=== PATIENT | male | born 1950 | race Caucasian/White ===

== ENCOUNTER → 2018-02-28 | Outpatient (CLI) | payer OTHER ==
[~2018-02-28] MED LIST: AMOX500T PO; AMOX875T PO; ASPI81TA28 PO; CEFT1INJ26 IV; INSDGIPEN SC; METFTAB PO
[2018-02-28 17:21] LABS: HEMATOCRIT 34.7 % (42-52); HEMOGLOBIN 11.1 g/dL (14.0-18.0); MEAN CELL VOLUME 84.6 fL (80-100); MEAN CORPUSCULAR HEMOGLOBIN 27.1 pg (25-34); MEAN PLATELET VOLUME 9.4 fL (7.4-10.4); PLATELET COUNT 195 K/uL (130-400); RED CELL DISTRIBUTION WIDTH CV 14.6 % (11.5-14.5); RED CELL DISTRIBUTION WIDTH SD 45.2 fL (36.4-46.3); WHITE BLOOD COUNT 6.81 K/uL (4.8-10.8)
[2018-02-28 17:34] LABS: ALBUMIN 2.6 gm/dl (3.4-5.0); ALKALINE PHOSPHATASE 75 U/L (45-117); ALT/SGPT 15 U/L (12-78); AST/SGOT 13 U/L (15-37); BLOOD UREA NITROGEN 16 mg/dl (7-18); CALCIUM 8.2 mg/dl (8.5-10.1); CARBON DIOXIDE 29 mmol/L (21-32); CREATININE 0.95 mg/dl (0.60-1.40); GLUCOSE 241 mg/dl (70-99); POTASSIUM 3.9 mmol/L (3.5-5.1); SODIUM 139 mmol/L (136-145); TOTAL PROTEIN 7.7 gm/dl (6.4-8.2)
--- NOTE | 2018-04-13 08:12 | CODING QUERY NO DIAGNOSIS ---
Valid Physician Order Needed A valid physician order must be submitted in order to properly bill for the service(s) provided, including date of service(s), valid diagnosis, and physician signature. If these tests are done on a recurring basis the original physican order must be submitted in order to code and bill for the service(s) provided. Please fax us the original, signed physician order so that we may expedite billing to [phone] DOS 02/28/18 * CMP * CREATINE PHOSPHOKINASE * CBC W/O DIFF * ERYTHROCYTE SEDIMENTATION RATE Thank you Fidelina [facility] Information Management
== END | disposition home or self-care (01) ==
LOC: C.LABSPEC 11:40
PROVIDERS: ATTEND Internal Medicine Infectious Disease
DX: R78.81 Bacteremia (principal); Z45.2 Encounter for adjustment and management of vascular access device

== ENCOUNTER → 2018-03-10 | Outpatient (CLI) | payer OTHER ==
[2018-03-10 15:03] LABS: HEMATOCRIT 37.3 % (42-52); HEMOGLOBIN 12.2 g/dL (14.0-18.0); MEAN CELL VOLUME 82.9 fL (80-100); MEAN CORPUSCULAR HEMOGLOBIN 27.1 pg (25-34); MEAN CORPUSCULAR HGB CONC 32.7 g/dl (32-36); PLATELET COUNT 213 K/uL (130-400); RED CELL DISTRIBUTION WIDTH CV 14.5 % (11.5-14.5); RED CELL DISTRIBUTION WIDTH SD 44.3 fL (36.4-46.3); WHITE BLOOD COUNT 5.78 K/uL (4.8-10.8)
[2018-03-10 15:11] LABS: ALBUMIN 2.9 gm/dl (3.4-5.0); ALKALINE PHOSPHATASE 66 U/L (45-117); ALT/SGPT 15 U/L (12-78); AST/SGOT 12 U/L (15-37); BLOOD UREA NITROGEN 22 mg/dl (7-18); CALCIUM 8.4 mg/dl (8.5-10.1); CARBON DIOXIDE 29 mmol/L (21-32); CREATININE 1.04 mg/dl (0.60-1.40); GLUCOSE 187 mg/dl (70-99); SODIUM 140 mmol/L (136-145); TOTAL PROTEIN 7.8 gm/dl (6.4-8.2)
== END | disposition home or self-care (01) ==
LOC: C.LABSPEC 11:36
PROVIDERS: ATTEND Internal Medicine Infectious Disease
DX: R78.81 Bacteremia (principal)

== ENCOUNTER 2019-03-11 16:25 | Inpatient (IN) ==
[2019-03-11] MEDS ORDERED: VANCOMYCIN CONSULT ACTIVE PRN ×2 (17:03→21:10)
[2019-03-11] MEDS ORDERED: VANCOMYCIN HCL 1,500 MG in SODIUM CHLORIDE 0.9% 500 ML IV ONE (17:03)
[2019-03-11] MEDS ORDERED: cefTRIAXone SODIUM 1,000 MG/50 ML BAG IV STA (17:03)
--- NOTE | 2019-03-11 17:21 | XRay Report ---
XR foot RT min 3V routine CLINICAL HISTORY: possible infection, great toe infection. Pain. COMPARISON: None. DISCUSSION: Destructive changes involving the tuft of the distal phalanx of the great toe. Moderate l ocalized soft tissue edematous change. This appearance is consistent with that of osteomyelitis. Mild degenerative change of all remaining components of the foot. Dorsal soft tissue edematous change . Alignment is anatomic. IMPRESSION: 1. Destructive changes involving the tuft of the distal phalanx of the great toe. 2. This appearance is consistent with that of osteomyelitis. The above report was generated using voice recognition software. It may contain grammatical, syntax or spelling errors. Electronically signed by: Mychal Wallace M.D. 03/11/2019 5:19 PM
[2019-03-11 17:54] LABS: Basophils # (auto) 0.03 K/uL (0-0.2); Basophils % (auto) 0.5 %; Eosinophils # (auto) 0.26 K/uL (0-0.5); Hemoglobin 11.2 g/dL (14.0-18.0); Immature Granulocytes # (auto) 0.01 K/uL (0.00-0.02); Immature Granulocytes % (auto) 0.2 %; Lymphocytes # (auto) 1.37 K/uL (1.2-3.4); Lymphocytes % (auto) 21.1 %; Mean Corpuscular Hgb Conc 33.9 g/dL (32-36); Mean Corpuscular Volume 86.6 fL (80-100); Mean Platelet Volume 8.8 fL (7.4-10.4); Monocytes # (auto) 0.77 K/uL (0.11-0.59); Monocytes % (auto) 11.9 %; Neutrophils # (auto) 4.05 K/uL (1.4-6.5); Neutrophils % (auto) 62.3 %; Platelet Count 301 K/uL (130-400); RDW Coefficient of Variation 12.6 % (11.5-14.5); RDW Standard Deviation 40.3 fL (36.4-46.3); Red Blood Count 3.81 M/uL (4.7-6.1); White Blood Count 6.49 K/uL (4.8-10.8)
[2019-03-11 18:03] LABS: Partial Thromboplastin Ratio 0.9; Partial Thromboplastin Time 25.2 Seconds (21.0-31.0); Prothrombin Time 10.2 Seconds (9.0-12.0)
[2019-03-11 18:04] LABS: BUN Creatinine Ratio 11.3 (10-20); C Reactive Protein 5.78 mg/dl (0-0.29); Calcium 8.9 mg/dl (8.5-10.1); Creatinine Clr Calc Pharmacy 55.4 ml/min; Est GFR (African American) 71.4; Est GFR (Non-African American) 61.6; Potassium 4.5 mmol/L (3.5-5.1)
[2019-03-11 18:07] LABS: Albumin Globulin Ratio 0.6 (0.9-2); Bilirubin,Total 0.3 mg/dl (0.2-1)
--- NOTE | 2019-03-11 18:40 | Ultrasound Report ---
RIGHT LOWER EXTREMITY VENOUS DOPPLER HISTORY: Right leg swelling COMPARISON STUDY: None. FINDINGS: Near occlusive thrombus seen within the right popliteal vein. The remaining deep venous str uctures are patent. IMPRESSION: Near occlusive DVT within the right popliteal vein. Electronically signed by: Yared Estrada M.D. 03/11/2019 6:39 PM
[2019-03-11] MEDS ORDERED: ENOXAPARIN 80 MG/0.8 ML SYR SQ ONE (18:50)
--- NOTE | 2019-03-11 19:55 | History & Physical Report ---
Date of Service March 11, 2019 Assessment & Plan (1) Deep vein thrombosis (DVT) of popliteal vein of right lower extremity: Patient was started on therapeutic Lovenox in the ED. We will change to heparin IV in the a.m. if a bone biopsy or other procedure is planned. Order hypercoagulable panel. He denies any symptoms of chest pain or shortness of breath. Present on Admission?: Yes (2) Osteomyelitis of great toe of right foot: Diabetic foot ulcer right great toe/osteomyelitis- When this happened his left foot previously, he had group C beta strep as the organism. Vancomycin IV and Zosyn IV empirically. Consult infectious disease. Will need PICC line placement. Will need lower extremity arterial Dopplers. Present on Admission?: Yes (3) Diabetic ulcer of right great toe: As above Present on Admission?: Yes (4) Type 2 diabetes mellitus: Hold metformin. Placed on Accu-Cheks with NovoLog coverage. Check a hemoglobin A1c Present on Admission?: Yes (5) Anemia: Chronically anemic, with range 9.9-13.0. 11.2 today. We will need to review her chart to see if he is up-to-date on colonoscopies etc. Present on Admission?: Yes (6) CAD (coronary artery disease): Aspirin 81 mg p.o. daily. Present on Admission?: Yes (7) Myocardial infarction: No acute issues at this time. Present on Admission?: Yes (8) Status post amputation of toe: Previous involvement of osteomyelitis and left foot required partial amputation, and then developed secondary infection. Patient reports no further issues since this had occurred in January 2018. Present on Admission?: Yes History of Present Illness Chief Complaint: The patient was referred by his PCP to the ED today after being seen in the office and noted to have a foul-smelling right great toe lesion. The patient himself is unsure of the time origin, but thinks that it has been at least 3 weeks that is been present. Primary Care Provider: Javier Houston MD The patient is a 69-year-old male with a past medical history including diabetes mellitus, and previous cellulitis/osteomyelitis of his left great toe requiring a PICC line and several weeks of IV antibiotics. He presented to his PCPs office today, was noted to have a significant right great toe infection, and was referred to the ED for further assessment. He reportedly had been started on Keflex by his glove examiner 3 days previously. X-ray in the emergency department showed destructive changes involving the tuft of the distal phalanx of the right great toe, that was consistent with osteomyelitis. He also underwent a lower extremity venous Doppler which showed near complete DVT within the right popliteal vein. He was then referred for evaluation for admission. Allergies Allergy/AdvReac Type Severity Reaction Status Date / Time ranitidine Allergy Unknown Verified 03/11/19 18:45 Home Medications Home Medications Medication Instructions Recorded Confirmed Type aspirin 81 mg tablet,delayed 81 mg PO DAILY 04/17/18 03/11/19 History release cephalexin 250 mg PO QID 03/11/19 03/11/19 History metformin ER 500 mg 1,000 mg PO AMPM #120 tab 03/11/19 03/11/19 History tablet,extended release 24 hr Past Med/Surg History Medical History Acquired claw toe of left foot (Acute) Acquired claw toe of right foot (Acute) Callus (Acute) Diabetic peripheral neuropathy (Acute) 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 (Acute) Coronary artery disease (Chronic) Diabetes mellitus type II, uncontrolled (Chronic) GERD (gastroesophageal reflux disease) (Chronic) Myocardial infarction (Chronic) Surgical History H/O angioplasty (Chronic) Social History Preferred Language: Vietnamese Communication Ability: Effective Visual Impairment: No Limitations Hearing Ability: Normal Geospatial Engineer Required: No Beliefs That Will Affect Care: None marital status: Current Living Situation: Family Current Living Situation Comment: 2 story home; railings present current occupational status: employed 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; 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 Other Information That Helps Us Care for You: No Feels Safe at Home: Yes Safety Concerns: Feels Safe At This Time Smoking Status: Former smoker Do You Dip or Chew Tobacco: No Smoking End Date: 20 years ago Second Hand Exposure: Yes Tobacco Cessation Education Requested by Patient: No Hx Alcohol Use: No Hx Substance Use: No Review of Systems Review of Systems: The patient denies chest pain, palpitations, shortness of breath, dyspnea on exertion, cough, sore throat, fevers, chills, sweats, weight change, fatigue, nausea, vomiting, diarrhea , constipation, abdominal pain, pelvic pain, blood in urine or stool, dysuria, urinary frequency or urgency, lightheadedness, dizziness, headache, memory loss, loss of consciousness, abnormal bruising or bleeding, imbalance, focal or generalized weakness, numbness or tingling in arms or left leg, generalized arthralgias or myalgias, back or neck pain, or night sweats. The review of systems is otherwise negative other than for that already noted above, and at least 10 systems have been reviewed. Physical Exam Physical Exam: The patient is awake, alert and oriented 3, well developed and well nourished, normocephalic and atraumatic, lying in bed and in no acute distress. HEENT--PERRL, EOMI, mucous membranes and oropharynx normal. Neck--supple. No JVD. No bruits. Thyroid normal, trachea midline, no adenopathy. Heart--normal S1 and S2. No murmurs, rubs or gallops. Lungs--clear bilaterally, no respiratory distress, no accessory muscle use. Abdomen--normal bowel sounds and soft. Nontender. Nondistended, no hernias or masses, no organomegaly. Extremities--no cyanosis or clubbing. Right lower extremity with pretibial and pedal 1+ pitting edema. Left lower extremity normal. Dermatologic--right great toe with erythema distally to the first metatarsal, and ulceration. Neurologic--cranial nerves II through XII grossly intact. Rheumatologic--normal range of motion. Psychiatric--normal affect. Results & Data Vital Signs (Past 12 Hours) Vital Signs Temp Pulse Pulse Resp BP BP Pulse Ox 03/11/19 19:30 81 16 142/80 H 97 03/11/19 17:30 90 20 136/69 97 03/11/19 16:44 98.1 F 97 H 20 134/76 96 Laboratory Results Laboratory Results WBC 6.49 K/uL (4.8-10.8) 03/11/19 17:25 RBC 3.81 M/uL (4.7-6.1) L 03/11/19 17:25 Hgb 11.2 g/dL (14.0-18.0) L 03/11/19 17:25 Hct 33.0 % (42-52) L 03/11/19 17:25 MCV 86.6 fL (80-100) 03/11/19 17:25 MCH 29.4 pg (25-34) 03/11/19 17: MCHC 33.9 g/dL (32-36) 03/11/19 17:25 RDW Std Deviation 40.3 fL (36.4-46.3) 03/11/19: RDW Coeff of Bri 12.6 % (11.5-14.5) 03/11/19: Plt Count 301 K/uL (130-400) 03/11/19: MPV 8.8 fL (7.4-10.4) 03/11/19: Immature Gran % (Auto) 0.2 % 03/11/19 17: Neut % (Auto) 62.3 % 03/11/19: Lymph % (Auto) 21.1 % 03/11/19 17:25 Wirt % (Auto) 11.9 % 03/11/19 17:25 Eos % (Auto) 4.0 % 03/11/19 17:25 Baso % (Auto) 0.5 % 03/11/19: Immature Gran # (Auto) 0.01 K/uL (0.00-0.02) 03/11/19: Neut # (Auto) 4.05 K/uL (1.4-6.5) 03/11/19:25 Lymph # (Auto) 1.37 K/uL (1.2-3.4) 03/11/19:25 Wirt # (Auto) 0.77 K/uL (0.11-0.59) H 03/11/19 17:25 Eos # (Auto) 0.26 K/uL (0-0.5) 03/11/19:25 Baso # (Auto) 0.03 K/uL (0-0.2) 03/11/19:25 ESR > 140 mm/hr (0-14) H 03/11/19 17:25 PT 10.2 Seconds (9.0-12.0) 03/11/19:25 INR 1.0 (0.9-1.1) 03/11/19 17:25 APTT 25.2 Seconds (21.0-31.0) 03/11/19 17:25 PTT Ratio 0.9 03/11/19 17:25 Sodium 141 mmol/L (136-145) 03/11/19 17:25 Potassium 4.5 mmol/L (3.5-5.1) 03/11/19 17:25 Chloride 106 mmol/L (98-107) 03/11/19 17:25 Carbon Dioxide 30 mmol/L (21-32) 03/11/19 17:25 Anion Gap 5.0 (3-11) 03/11/19 17:25 BUN 14 mg/dl (7-18) 03/11/19 17:25 Creatinine 1.21 mg/dl (0.6-1.4) 03/11/19 17:25 Est Cr Clr Drug Dosing 55.4 ml/min 03/11/19 17:25 Est GFR ( Amer) 71.4 03/11/19 17:25 Est GFR (Non-Af Amer) 61.6 03/11/19 17:25 BUN/Creatinine Ratio 11.3 (10-20) 03/11/19 17:25 Glucose 135 mg/dl (70-99) H 03/11/19 17:25 POC Glucose 96 (70-99) 03/11/19 21:22 Calcium 8.9 mg/dl (8.5-10.1) 03/11/19 17:25 Total Bilirubin 0.3 mg/dl (0.2-1) 03/11/19 17:25 AST 10 U/L (15-37) L 03/11/19 17:25 ALT 14 U/L (12-78) 03/11/19 17:25 Alkaline Phosphatase 62 U/L (45-117) 03/11/19 17:25 C-Reactive Protein 5.78 mg/dl (0-0.29) H 03/11/19 17:25 Total Protein 8.0 gm/dl (6.4-8.2) 03/11/19 17:25 Albumin 3.0 gm/dl (3.4-5.0) L 03/11/19 17:25 Globulin 5.0 gm/dl (2.5-4.0) H 03/11/19 17:25 Albumin/Globulin Ratio 0.6 (0.9-2) L 03/11/19 17:25 Procalcitonin 0.05 ng/ml (0-0.5) 03/11/19 17:25 Diagnostic Findings [place], [place] [phone] XRay Report Patient: FARHAN HINOJOSA Date: 03/11/19 MR#: [id number]: [address] Acct ID:[id number]: Date: [address] [place] [address] Zip: [place] [address] Age: 69Location: ED Sex: M Room/Bed: Att Phy: Diagnosis: DIABETIC ULCER ON BIG TOE, RT FOOT Lakeisha Phy: Javier Houston MDService Date: 03/11/19 Fam Phy: Interpreting Phy: Mychal Wallace MD Admit Phy: Ordering Phy: Johnny Diamond DO cc: ~ XR foot RT min 3V routine CLINICAL HISTORY: possible infection, great toe infection. Pain. COMPARISON: None. DISCUSSION: Destructive changes involving the tuft of the distal phalanx of the great toe. Moderate localized soft tissue edematous change. This appearance is consistent with that of osteomyelitis. Mild degenerative change of all remaining components of the foot. Dorsal soft tissue edematous change. Alignment is anatomic. IMPRESSION: 1. Destructive changes involving the tuft of the distal phalanx of the great toe. 2. This appearance is consistent with that of osteomyelitis. The above report was generated using voice recognition software. It may contain grammatical, syntax or spelling errors. Electronically signed by: yMchal Wallace M.D. 03/11/2019 5:19 PM Dictated: 03/11/191717 Transcribed: 03/11/19 1718 [place], [place] [phone] Ultrasound Report Patient: FARHAN HINOJOSA Date: 03/11/19 MR#: [id number]: [address] Acct ID:[id number]: Date: [address] [place] [address] Zip: [place] [address] Age: 69Location: ED Sex: M Room/Bed: Att Phy: Diagnosis: DIABETIC ULCER ON BIG TOE, RT FOOT Lakeisha Phy: Javier Houston, MDService Date: 03/11/19 Fam Phy: Interpreting Phy: Yared Estrada MD Admit Phy: Ordering Phy: Johnny Diamond DO cc: ~ RIGHT LOWER EXTREMITY VENOUS DOPPLER HISTORY: Right leg swelling COMPARISON STUDY: None. FINDINGS: Near occlusive thrombus seen within the right popliteal vein. The remaining deep venous structures are patent. IMPRESSION: Near occlusive DVT within the right popliteal vein. Electronically signed by: Yared Estrada M.D. 03/11/2019 6:39 PM Dictated: 03/11/191837 Transcribed: 03/11/191837 Code Status & VTE Plan Code Status Full code VTE Prophylaxis Plan VTE Prophylaxis will be ordered: Yes PG Care Time/CCT Total # of Minutes Spent Total Time Spent with Patient: Total time spent is greater than 50% in coordination of care (as documented) at patient's floor/unit and/or counseling patient:
[2019-03-11] MEDS ORDERED: GLUCOSE 40% GEL 15 GM TUBE PO PRN (21:10)
[2019-03-11] MEDS ORDERED: MAGNESIUM HYDROXIDE SUSP 30 ML UDC PO PRN (21:10)
[2019-03-11] MEDS ORDERED: ONDANSETRON INJ 2 MG/ML 2 ML VIAL IV PRN (21:10)
[2019-03-11] MEDS ORDERED: POLYETHYLENE (MIRALAX) 17 GM PACK PO PRN (21:10)
[2019-03-11] MEDS ORDERED: ACETAMINOPHEN 1000 MG/100 ML IV IV PRN (21:10)
[2019-03-11] MEDS ORDERED: ALUMINUM/MAGNESIUM SUSP 30 ML UDC PO PRN (21:10)
[2019-03-11] MEDS ORDERED: PIPERACILL/TAZOBAC CONSULT ACTIVE PRN (21:10)
[2019-03-11] MEDS ORDERED: GLUCOSE 10 TABS/TUBE PO PRN (21:10)
[2019-03-11] MEDS ORDERED: DEXTROSE 50% 50 ML SYRINGE IV PRN (21:10)
[2019-03-11] MEDS ORDERED: ACETAMINOPHEN 325 MG TAB PO PRN (21:10)
[2019-03-11] MEDS ORDERED: CARBOHYDRATES FOR HYPOGLYCEMIA PO PRN (21:10)
[2019-03-11] MEDS ORDERED: GLUCAGON FOR INJ 1 MG VIAL SQ PRN (21:10)
[2019-03-11] MEDS ORDERED: PIPERACILLIN/TAZOBACTAM 3.375 GM in DEXTROSE 5% 100 ML IV STA (21:34)
[2019-03-11] MEDS ORDERED: DIPHTHERIA/TETANUS/ACELLULAR PERTUSSIS PEDIATRIC 0.5 ML VIAL IM ONE (22:00)
[2019-03-11] MEDS: INSULIN ASPART 100 UNITS/ML 3 ML PEN SC SCH (22:12)
--- NOTE | 2019-03-11 23:29 | Emergency Department Note ---
Entered by Chaparrita Rivera acting as a scribe for History of Present Illness General Chief complaint: Infection, Wound Stated complaint: DIABETIC ULCER ON BIG TOE, RT FOOT Time Seen by Provider: 03/11/19 16:48 Source: patient Mode of arrival: ambulatory Limitations: no limitations History of Present Illness Onset (ago): day(s) 3 Location: right (right foot, big toe) Pain Consistency: + other (worsening ) Quality: + other (pressure ) Relieved By: + medication (Cephalexin) Exacerbated By: + other (Bactroban) Associated symptoms: no fever/chills and no nausea/vomiting The patient is a 69 year old male who presents to the ED with complaints of a worsening ulcer on the big toe of his right foot for 3 days now. He reports that the swelling has gone down but there is "quite a bit of drainage coming from the toe." He states that he only feels "pressure" in his toe. The patient denies normal swelling in his right ankle that he presents with in the ED today. He claims that it started as a blister and progressed into an ulcer. The patients reports that the patient puts Bactroban on his toe ulcer. The patient states that he is currently on Cephalexin for his ulcer prescribed by Dr. Carmen, Podiatry. The patient states that he lost a toe on his left foot a year ago from an ulcer caused by his diabetes. The patient claims that he had a stent placed in 2006. The patient denies, fever, chills, nausea, and vomiting. The patient denies any history of blood clots. Home Medications Home Medications Medication Instructions Recorded Confirmed Type aspirin 81 mg tablet,delayed 81 mg PO DAILY 04/17/18 03/11/19 History release cephalexin 250 mg PO QID 03/11/19 03/11/19 History metformin ER 500 mg 1,000 mg PO AMPM #120 tab 03/11/19 03/11/19 History tablet,extended release 24 hr Allergies Allergy/AdvReac Type Severity Reaction Status Date / Time ranitidine Allergy Unknown Verified 03/11/19 18:45 Past Med/Surg History Medical History Acquired claw toe of left foot (Acute) Acquired claw toe of right foot (Acute) Callus (Acute) Diabetic peripheral neuropathy (Acute) 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 (Acute) Coronary artery disease (Chronic) Diabetes mellitus type II, uncontrolled (Chronic) GERD (gastroesophageal reflux disease) (Chronic) Myocardial infarction (Chronic) Surgical History H/O angioplasty (Chronic) Social History Preferred Language: Hungarian Communication Ability: Effective Visual Impairment: No Limitations Hearing Ability: Normal 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 Beliefs That Will Affect Care: None marital status: Current Living Situation: Family Current Living Situation Comment: 2 story home; railings present current occupational status: employed 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 and A total of 10 systems reviewed and were otherwise negative Physical Exam Vital Signs Vital Signs - 24 hr 03/11/19 16:44 03/11/19 17:30 03/11/19 19:30 Temperature 36.7 C Temperature Source Oral Sepsis Recent Fever Within 48 Hours No Sepsis New/Unexplained Change in Mental Status No Sepsis Action Taken by Nursing No Action Required Pulse Rate 97 H Pulse Rate [Apical] 90 81 Pulse Rhythm Regular Pulse Rhythm [Apical] Regular Pulse Strength Normal Pulse Strength [Apical] Normal Respiratory Rate 20 20 16 Respiratory Effort / Characteristics Non-Labored Spontaneous Non-Labored Respiratory Depth Normal Normal Respiratory Pattern Regular Regular Blood Pressure 134/76 Blood Pressure [Right Arm] 136/69 142/80 H Blood Pressure Mean 95 Blood Pressure Mean [Right Arm] 91 100 Blood Pressure Position Sitting Blood Pressure Position [Right Arm] Lying Pulse Oximetry 96 97 97 Oxygen Delivery Method Room Air Room Air Room Air GENERAL: Patient is awake, alert, and in no acute distress.Patient is resting comfortably and showing no signs of anxiety EYES: The conjunctivae are clear. The pupils are round and reactive. EARS, NOSE, MOUTH AND THROAT: The nose is without any evidence of any deformity. Mucous membranes are moist.Tongue is midline NECK: The neck is nontender and supple. RESPIRATORY: Normal respiratory effort is noted. There is no evidence of wheezing rhonchi or rales to auscultation. CARDIOVASCULAR: Regular rate and rhythm noted. There no murmurs rubs or gallops normal S1 normal S2 GASTROINTESTINAL: The abdomen is soft. Bowel sounds are present in all quadrants. Abdomen is nontender. MUSCULOSKELETAL/EXTREMITIES: There is no evidence of gross deformity. Full range of motion is noted in the hips and shoulders. SKIN: Pedal edema bilaterally, with the right bigger than the left. No di scoloration in right lower extremity. Significant ulceration at the plantar surface of the right great toe. Deep ulceration that is approx. 3 cm in diameter. Significant erythema and swelling noted around the right great toe. NEUROLOGIC: Patient is awake alert and oriented x3. [Strength is symmetric. Patellar reflexes are 2+ bilaterally.] Course 1702: Past medical records reviewed. The patient was evaluated in room C3. A complete history and physical exam was performed. 1840: I reevaluated the patient at this time and he is resting comfortably. I discussed the patients case with Fatuma Theodore. He suggested the patient begin Lovenox. He agreed to evaluate the patient in the morning for further management. Consultations Consultation #1: I reevaluated the patient at this time and he is resting comfortably. I discussed the patients case with Fatuma Theodore. He suggested the patient begin Lovenox. He agreed to evaluate the patient in the morning for further management. Time: 18:40 Administered Medications Aspirin (Ecotrin Ectab) 81 mg PO DAILY [facility] Stop: 04/11/19 08:59 Last Admin: 03/12/19 08:38 Dose: 81 mg Documented by: [id number] Piperacillin Sod/Tazobactam (Sod 3.375 gm/ Dextrose) 115 mls @ 28.75 mls/hr IV Q8H [facility]; Protocol Stop: 03/22/19 01:59 Last Infusion: 03/12/19 13:29 Dose: 0 mls/hr Documented by: [id number] Admin: 03/12/19 09:49 Dose: 28.8 mls/hr Documented by: [id number] Infusion: 03/12/19 06:10 Dose: 0 mls/hr Documented by: [id number] Admin: 03/12/19 02:08 Dose: 28.8 mls/hr Documented by: [id number] Vancomycin HCl 1,250 mg/ (Sodium Chloride) 275 mls @ 125 mls/hr IV Q18H [facility]; Protocol Stop: 03/22/19 07:59 Last Infusion: 03/12/19 11:05 Dose: 0 mls/hr Documented by: [id number] Admin: 03/12/19 08:38 Dose: 125 mls/hr Documented by: [id number] Heparin Sodium/Dextrose (Heparin Sodium/Dextrose) 25,000 units in 500 mls @ 25 mls/hr IV .Q20H [facility]; Protocol Stop: 04/11/19 07:44 Last Admin: 03/12/19 09:14 Dose: 1,250 units/hr, 25 mls/hr Documented by: [id number] Cosigned by: [id number] Insulin Aspart (Novolog Flexpen) 0 units SC ACHS [facility] Stop: 04/10/19 21:59 Last Admin: 03/12/19 13:14 Dose: 4 units Documented by: [id number] Cosigned by: [id number] Admin: 03/12/19 08:39 Dose: 3 units Documented by: [id number] Cosigned by: [id number] Admin: 03/11/19 22:12 Dose: Not Given Documented by: [id number] Cosigned by: [id number] Discontinued Medications Enoxaparin Sodium (Lovenox) 80 mg SQ NOW ONE Stop: 03/11/19 18:51 Last Admin: 03/11/19 19:30 Dose: 80 mg Documented by: [id number] Vancomycin HCl 1,500 mg/ (Sodium Chloride) 530 mls @ 200 mls/hr IV NOW ONE; Protocol Stop: 03/11/19 19:41 Last Infusion: 03/11/19 22:37 Dose: 0 mls/hr Documented by: [id number] Admin: 03/11/19 19:30 Dose: 200 mls/hr Documented by: [id number] Ceftriaxone Sodium (Rocephin) 1,000 mg in 50 mls @ 100 mls/hr IV NOW STA Stop: 03/11/19 17:32 Last Infusion: 03/11/19 18:49 Dose: 0 mls/hr Documented by: [id number] Admin: 03/11/19 18:17 Dose: 100 mls/hr Documented by: [id number] Piperacillin Sod/Tazobactam (Sod 3.375 gm/ Dextrose) 115 mls @ 230 mls/hr IV NOW STA; Protocol Stop: 03/11/19 22:03 Last Infusion: 03/11/19 23:12 Dose: 0 mls/hr Documented by: [id number] Admin: 03/11/19 22:37 Dose: 230 mls/hr Documented by: [id number] Medical Decision Making Differential Diagnosis Differential diagnosis: Etiologies such as fracture, cervical/vertebral injury, dislocation, intra- abdominal process, pneumothorax, intrathoracic trauma, intracranial injury, soft tissue injury, neurologic process, as well as other traumatic pathologies were entertained. Medical Records Attestation: I reviewed the patient's medical records. Home Medications Current Medication List: was personally reviewed by me Laboratory Data Attestation: I reviewed the patient's lab results. Result diagrams: 03/12/19 08:48 03/12/19 06:58 Lab Results 03/11/19 03/11/19 03/11/19 Range/Units 17:25 17:25 17:25 WBC 6.49 (4.8-10.8) K/uL RBC 3.81 L (4.7-6.1) M/uL Hgb 11.2 L (14.0-18.0) g/dL Hct 33.0 L (42-52) % MCV 86.6 (80-100) fL MCH 29.4 (25-34) pg MCHC 33.9 (32-36) g/dL RDW Std Deviation 40.3 (36.4-46.3) fL RDW Coeff of Bri 12.6 (11.5-14.5) % Plt Count 301 (130-400) K/uL MPV 8.8 (7.4-10.4) fL Immature Gran % (Auto) 0.2 % Neut % (Auto) 62.3 % Lymph % (Auto) 21.1 % [place] % (Auto) 11.9 % Eos % (Auto) 4.0 % Baso % (Auto) 0.5 % Immature Gran # (Auto) 0.01 (0.00-0.02) K/uL Neut # (Auto) 4.05 (1.4-6.5) K/uL Lymph # (Auto) 1.37 (1.2-3.4) K/uL [place] # (Auto) 0.77 H (0.11-0.59) K/uL Eos # (Auto) 0.26 (0-0.5) K/uL Baso # (Auto) 0.03 (0-0.2) K/uL ESR > 140 H (0-14) mm/hr PT 10.2 (9.0-12.0) Seconds INR 1.0 (0.9-1.1) APTT 25.2 (21.0-31.0) Seconds PTT Ratio 0.9 Sodium (136-145) mmol/L Potassium (3.5-5.1) mmol/L Chloride (98-107) mmol/L Carbon Dioxide (21-32) mmol/L Anion Gap (3-11) BUN (7-18) mg/dl Creatinine (0.6-1.4) mg/dl Est Cr Clr Drug Dosing ml/min Est GFR ( Amer) Est GFR (Non-Af Amer) BUN/Creatinine Ratio (10-20) Glucose (70-99) mg/dl Calcium (8.5-10.1) mg/dl Total Bilirubin (0.2-1) mg/dl AST (15-37) U/L ALT (12-78) U/L Alkaline Phosphatase (45-117) U/L C-Reactive Protein (0-0.29) mg/dl Total Protein (6.4-8.2) gm/dl Albumin (3.4-5.0) gm/dl Globulin (2.5-4.0) gm/dl Albumin/Globulin Ratio (0.9-2) Procalcitonin (0-0.5) ng/ml 03/11/19 03/11/19 Range/Units 17:25 17:25 WBC (4.8-10.8) K/uL RBC (4.7-6.1) M/uL Hgb (14.0-18.0) g/dL Hct (42-52) % MCV (80-100) fL MCH (25-34) pg MCHC (32-36) g/dL RDW Std Deviation (36.4-46.3) fL RDW Coeff of Bri (11.5-14.5) % Plt Count (130-400) K/uL MPV (7.4-10.4) fL Immature Gran % (Auto) % Neut % (Auto) % Lymph % (Auto) % [place] % (Auto) % Eos % (Auto) % Baso % (Auto) % Immature Gran # (Auto) (0.00-0.02) K/uL Neut # (Auto) (1.4-6.5) K/uL Lymph # (Auto) (1.2-3.4) K/uL [place] # (Auto) (0.11-0.59) K/uL Eos # (Auto) (0-0.5) K/uL Baso # (Auto) (0-0.2) K/uL ESR (0-14) mm/hr PT (9.0-12.0) Seconds INR (0.9-1.1) APTT (21.0-31.0) Seconds PTT Ratio Sodium 141 (136-145) mmol/L Potassium 4.5 (3.5-5.1) mmol/L Chloride 106 (98-107) mmol/L Carbon Dioxide 30 (21-32) mmol/L Anion Gap 5.0 (3-11) BUN 14 (7-18) mg/dl Creatinine 1.21 (0.6-1.4) mg/dl Est Cr Clr Drug Dosing 55.4 ml/min Est GFR ( Amer) 71.4 Est GFR (Non-Af Amer) 61.6 BUN/Creatinine Ratio 11.3 (10-20) Glucose 135 H (70-99) mg/dl Calcium 8.9 (8.5-10.1) mg/dl Total Bilirubin 0.3 (0.2-1) mg/dl AST 10 L (15-37) U/L ALT 14 (12-78) U/L Alkaline Phosphatase 62 (45-117) U/L C-Reactive Protein 5.78 H (0-0.29) mg/dl Total Protein 8.0 (6.4-8.2) gm/dl Albumin 3.0 L (3.4-5.0) gm/dl Globulin 5.0 H (2.5-4.0) gm/dl Albumin/Globulin Ratio 0.6 L (0.9-2) Procalcitonin 0.05 (0-0.5) ng/ml Imaging Data Radiologist's Impression: Radiology results as stated below per my review and the radiologist's interpretation: RIGHT LOWER EXTREMITY VENOUS DOPPLER HISTORY: Right leg swelling COMPARISON STUDY: None. FINDINGS: Near occlusive thrombus seen within the right popliteal vein. The remaining deep venous structures are patent. IMPRESSION: Near occlusive DVT within the right popliteal vein. Electronically signed by: Yared Estrada M.D. 03/11/2019 6:39 PM XR foot RT min 3V routine CLINICAL HISTORY: possible infection, great toe infection. Pain. COMPARISON: None. DISCUSSION: Destructive changes involving the tuft of the distal phalanx of the great toe. Moderate localized soft tissue edematous change. This appearance is consistent with that of osteomyelitis. Mild degenerative change of all remaining components of the foot. Dorsal soft tissue edematous change. Alignment is anatomic. IMPRESSION: 1. Destructive changes involving the tuft of the distal phalanx of the great toe. 2. This appearance is consistent with that of osteomyelitis. The above report was generated using voice recognition software. It may contain grammatical, syntax or spelling errors. Electronically signed by: Mychal Wallace M.D. 03/11/2019 5:19 PM Blood Pressure Blood Pressure Findings: Normal blood pressure Blood Pressure Disposition: did not require urgent referral MDM Narrative The patient is a 69-year-old male who presented to the emergency department for an evaluation of right foot infection. The patient had a diabetic ulcer on his left foot. This was very deep and appeared to be consistent with osteomyelitis based on x-ray findings. The patient also had leg swelling. For this reason further laboratory and radiographic studies were obtained including an ultrasound of the lower extremity. This appeared to be consistent with a DVT. He was started on IV antibiotics and also started on blood thinners. He was given Lovenox in the emergency department. I discussed the patient's laboratory and radiographic studies with him. I also discussed his case with the on-call [facility] hospitalist group. They have agreed to evaluate the patient in the emergency department for further management disposition. Impression & Plan Osteomyelitis, DVT (deep venous thrombosis) Critical Care Time Critical Care Time: Yes Total Critical Care Time: 35 I have personally spent greater than 35 minutes of critical care time in the direct management of this patient. This includes bedside care, interpretation of diagnostic studies, and testing, discussion with consultants, patient, and family members, and other required patient management activities. This 35 minutes is in excess of all separately billable procedures. Discharge Plan Visit Data *Final* Discharge Date/Time: 03/11/19 20:48 Chief Complaint: Infection, Wound Stated Complaint: DIABETIC ULCER ON BIG TOE, RT FOOT ED Provider: Johnny Diamond Discharge Problem: Osteomyelitis, DVT (deep venous thrombosis) Patient Disposition: Admitted As Inpatient Discharge Instructions Interventions: ED Discharge Assessment Last Done: 03/11/19 20:48 Discharge Problem: Osteomyelitis Qualifiers: Osteomyelitis type: unspecified type Osteomyelitis location: unspecified site Qualified Code(s): M86.9 - Osteomyelitis, unspecified DVT (deep venous thrombosis) Qualifiers: DVT location: lower extremity Affected thrombotic vein of extremity: unspecified vein of extremity Chronicity: unspecified Laterality: unspecified laterality Qualified Code(s): I82.409 - Acute embolism and thrombosis of unspecified deep veins of unspecified lower extremity The scribe's documentation has been prepared under my direction and personally reviewed by me in its entirety. I confirm that the note above accurately reflects all work, treatment, procedures, and medical decision making performed by me.
[2019-03-12] MEDS: PIPERACILLIN/TAZOBACTAM 3.375 GM in DEXTROSE 5% 100 ML IV SCH ×3 (02:08→17:55)
[2019-03-12 07:17] LABS: Basophils # (auto) 0.02 K/uL (0-0.2); Basophils % (auto) 0.4 %; Eosinophils # (auto) 0.27 K/uL (0-0.5); Eosinophils % (auto) 5.1 %; Hematocrit (blood only) 31.3 % (42-52); Hemoglobin 10.5 g/dL (14.0-18.0); Lymphocytes # (auto) 1.02 K/uL (1.2-3.4); Lymphocytes % (auto) 19.2 %; Mean Corpuscular Hgb Conc 33.5 g/dL (32-36); Mean Corpuscular Volume 86.5 fL (80-100); Mean Platelet Volume 8.5 fL (7.4-10.4); Monocytes # (auto) 0.54 K/uL (0.11-0.59); Monocytes % (auto) 10.2 %; Neutrophils # (auto) 3.45 K/uL (1.4-6.5); Neutrophils % (auto) 65.1 %; Platelet Count 244 K/uL (130-400); RDW Coefficient of Variation 12.5 % (11.5-14.5); RDW Standard Deviation 40.1 fL (36.4-46.3); Red Blood Count 3.62 M/uL (4.7-6.1)
[2019-03-12 07:29] LABS: Partial Thromboplastin Time 27.6 Seconds (21.0-31.0); Prothrombin Time 10.7 Seconds (9.0-12.0)
[2019-03-12] MEDS ORDERED: Heparin IV Standard *NO* Bolus IV SCH (07:42)
[2019-03-12] MEDS ORDERED: HEPARIN SODIUM/DEXTROSE 25,000 UNITS/500 ML BAG IV SCH (07:45)
[2019-03-12 07:48] LABS: Estimated Average Glucose 163 mg/dl; Hemoglobin A1C 7.3 % (4.5-5.6)
[2019-03-12 07:52] LABS: Albumin Globulin Ratio 0.6 (0.9-2); Albumin Level 2.5 gm/dl (3.4-5.0); BUN Creatinine Ratio 11.6 (10-20); Bilirubin,Total 0.4 mg/dl (0.2-1); Creatinine Clr Calc Pharmacy 52.8 ml/min; Est GFR (African American) 67.3; Est GFR (Non-African American) 58.1; Globulin 4.5 gm/dl (2.5-4.0); Potassium 4.3 mmol/L (3.5-5.1)
[2019-03-12] MEDS: VANCOMYCIN HCL 1,250 MG in SODIUM CHLORIDE 0.9% 250 ML IV SCH (08:38)
[2019-03-12] MEDS: ASPIRIN 81 MG ECTAB PO SCH (08:38)
[2019-03-12] MEDS: INSULIN ASPART 100 UNITS/ML 3 ML PEN SC SCH ×4 (08:39→22:18)
[2019-03-12 09:01] LABS: Basophils # (auto) 0.03 K/uL (0-0.2); Basophils % (auto) 0.6 %; Eosinophils # (auto) 0.32 K/uL (0-0.5); Hematocrit (blood only) 33.8 % (42-52); Hemoglobin 11.2 g/dL (14.0-18.0); Immature Granulocytes # (auto) 0.01 K/uL (0.00-0.02); Immature Granulocytes % (auto) 0.2 %; Lymphocytes # (auto) 1.07 K/uL (1.2-3.4); Mean Platelet Volume 8.6 fL (7.4-10.4); Monocytes # (auto) 0.54 K/uL (0.11-0.59); Monocytes % (auto) 10.1 %; Neutrophils # (auto) 3.38 K/uL (1.4-6.5); Neutrophils % (auto) 63.1 %; Platelet Count 282 K/uL (130-400); RDW Coefficient of Variation 12.4 % (11.5-14.5); RDW Standard Deviation 39.4 fL (36.4-46.3); Red Blood Count 3.93 M/uL (4.7-6.1); White Blood Count 5.35 K/uL (4.8-10.8)
[2019-03-12 09:12] LABS: Partial Thromboplastin Time 25.9 Seconds (21.0-31.0); Prothrombin Time 10.3 Seconds (9.0-12.0)
[2019-03-12 09:22] LABS: Mean Corpuscular Hgb Conc 33.1 g/dL (32-36)
--- NOTE | 2019-03-12 11:30 | Infectious Disease Consult ---
Date of Consultation March 12, 2019 Assessment & Plan (1) Osteomyelitis of great toe of right foot: 69-year-old male with diabetes mellitus and peripheral neuropathy now with infected diabetic right great toe ulcer with underlying osteomyelitis. Cultures so far growing beta-hemolytic strep. Patient to continue on present antibiotics pending final culture results. Will likely need prolonged IV antibiotics. Would also obtain surgical evaluation for need for possible partial amputation. Will follow. (2) Infection due to Streptococcus group B: History of Present Illness Reason for Consultation: Diabetic foot ulcer, osteomyelitis Attending Physician: Leon Umanzor DO History of Present Illness 69-year-old male known to me from previous infectious disease consultation, with long history of diabetes mellitus with severe peripheral neuropathy, previous episode of left foot osteomyelitis treated successfully with antibiotics, who is had a blister on his right great toe for several weeks. Was being cared for by podiatry, treated with course of Keflex without improvement. Was just seen by his primary care physician who noted his leg to be swollen and erythematous, and referred patient for admission. He has been found to have DVT on ultrasound, and x-ray of the toe reveals destructive changes consistent with osteomyelitis. Cultures from the wound growing beta-hemolytic strep. Orthopedic consultation pending. Denies any fever or chills, no pain in his toe, no other new complaints at Allergies Allergy/AdvReac Type Severity Reaction Status Date / Time ranitidine Allergy Unknown Verified 03/11/19 18:45 Home Medications Home Medications Medication Instructions Recorded Confirmed Type aspirin 81 mg tablet,delayed 81 mg PO DAILY 04/17/18 03/11/19 History release metformin ER 500 mg 1,000 mg PO AMPM #120 tab 03/11/19 03/11/19 History tablet,extended release 24 hr amoxicillin-pot clavulanate 1 tab PO BID 14 Days #28 tab 03/14/19 Rx ciprofloxacin HCl 250 mg PO BID 14 Days #28 tab 03/14/19 Rx rivaroxaban [Xarelto] 15 mg PO BID 21 Days #42 tab 03/14/19 Rx rivaroxaban [Xarelto] 20 mg PO PM #30 tab 03/14/19 Rx Patient History Medical History History of partial ray amputation of second toe of left foot Acquired claw toe of left foot (Acute) Acquired claw toe of right foot (Acute) Callus (Acute) Diabetic peripheral neuropathy (Acute) 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 (Acute) Coronary artery disease (Chronic) Diabetes mellitus type II, uncontrolled (Chronic) GERD (gastroesophageal reflux disease) (Chronic) Myocardial infarction (Chronic) Surgical History H/O angioplasty (Chronic) Social History Preferred Language: [place] Communication Ability: Effective Visual Impairment: No Limitations Hearing Ability: Normal Integrated Circuit Ic Layout Designer Required: No Beliefs That Will Affect Care: None marital status: Current Living Situation: Family Current Living Situation Comment: 2 story home; railings present current occupational status: employed 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; 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 Feels Safe at Home: Yes Smoking Status: Former smoker Second Hand Exposure: Yes Hx Alcohol Use: No Hx Substance Use: No Physical Exam Constitutional: WD/WN, vitals as above comfortable; no acute distress Eyes: PERRL, conjunctivae normal, anicteric sclerae ENMT: external ear and nose normal, oropharynx normal Neck: trachea midline, no thyromegaly neck nontender Respiratory: normal respiratory effort, lungs clear to auscultation normal percussion; does not use accessory muscles Cardiovascular: Rate/Rhythm: regular rate and regular rhythm Heart Sounds: normal S1 and normal S2; no gallop, no murmur and no cardiac rub Vessels: normal peripheral pulses; no JVD Gastrointestinal (Abdomen): normal bowel sounds, soft, nontender, no hepatosplenomegaly Musculoskeletal: no cyanosis or clubbing, extremities motor strength 5/5 Spine: thoracic spine normal to inspection and lumbar spine normal to inspection; no cervical spinal tenderness Skin: no rashes, warm and dry normal turgor and + lesion (Right great toe ulceration with some erythema and induration) Neurologic: moves all extremities; no focal motor deficits Motor/Sensory: + sensory deficit (Both feet) Psychiatric: A+Ox3, euthymic affect Orientation: cooperative Lymphatic: no cervical or axillary lymphadenopathy no inguinal lymphadenopathy Results & Data Vital Signs (Past 12 Hours) Vital Signs Temp Pulse Resp BP Pulse Ox 03/12/19 07:12 36.9 C 88 16 122/69 94 Laboratory Results Short CBC 03/11/19 03/12/19 03/12/19 Range/Units 17:25 06:58 08:48 WBC 6.49 5.30 5.35 (4.8-10.8) K/uL Hgb 11.2 L 10.5 L 11.2 L (14.0-18.0) g/dL Hct 33.0 L 31.3 L 33.8 L (42-52) % Plt Count 301 244 282 (130-400) K/uL BMP 03/11/19 03/12/19 17:25 06:58 Sodium 141 141 Potassium 4.5 4.3 Chloride 106 107 Carbon Dioxide 30 29 BUN 14 15 Creatinine 1.21 1.27 Glucose 135 H 123 H Calcium 8.9 8.0 L Liver Function 03/11/19 03/12/19 Range/Units 17:25 06:58 Total Bilirubin 0.3 0.4 (0.2-1) mg/dl AST 10 L 6 L (15-37) U/L ALT 14 12 (12-78) U/L Alkaline Phosphatase 62 53 (45-117) U/L Albumin 3.0 L 2.5 L (3.4-5.0) gm/dl Diagnostic Findings Microbiology 03/11/19 17:00 Toe,Right Great Gram Stain - Final 03/11/19 17:00 Toe,Right Great Wound Culture - Preliminary Group G Beta Strep Group B Beta Strep XR foot RT min 3V routine CLINICAL HISTORY: possible infection, great toe infection. Pain. COMPARISON: None. DISCUSSION: Destructive changes involving the tuft of the distal phalanx of the great toe. Moderate localized soft tissue edematous change. This appearance is consistent with that of osteomyelitis. Mild degenerative change of all remaining components of the foot. Dorsal soft t issue edematous change. Alignment is anatomic. IMPRESSION: 1. Destructive changes involving the tuft of the distal phalanx of the great toe. 2. This appearance is consistent with that of osteomyelitis. The above report was generated using voice recognition software. It may contain grammatical, syntax or spelling errors.
--- NOTE | 2019-03-12 12:30 | Hospitalist Progress Note ---
Date of Service March 12, 2019 Assessment & Plan (1) Osteomyelitis of great toe of right foot: Diabetic foot ulcer right great toe/osteomyelitis- When this happened his left foot previously, he had group C beta strep as the organism. Vancomycin IV and Zosyn IV empirically, await cultures Consult infectious disease, Dr. Hernandez following consult Dr. Wasserman for recommendations for debridement/amputation if surgery is needed will need to determine if IVC filter indicated, will wait to discuss with vascular (2) Deep vein thrombosis (DVT) of popliteal vein of right lower extremity: Patient was started on therapeutic Lovenox in the ED. changed to heparin IV, standard with no bolus, started on morning 03/12 Ordered hypercoagulable panel, pending He denies any symptoms of chest pain or shortness of breath. as above, may need to consider removable IVC filter if surgery indicated (3) Diabetic ulcer of right great toe: As above continue antibiotics and consult orthopedic surgery (4) Type 2 diabetes mellitus: Hold metformin. Placed on Accu-Cheks with NovoLog coverage. Check a hemoglobin A1c, it is 7.3%, was actually 6.7% a few months ago according to patient monitor for hypoglycemia (5) Anemia: Chronically anemic, with range 9.9-13.0. 11.2 again today (6) CAD (coronary artery disease): Aspirin 81 mg p.o. daily. (7) Myocardial infarction: No acute issues at this time. (8) Status post amputation of toe: Previous involvement of osteomyelitis and left foot required partial amputation, and then developed secondary infection. Patient reports no further issues since this had occurred in January 2018. again, this was done by Dr. 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 Cuellar will consult Dr. Wasserman's group for recommendations appreciate Dr. Hernandez consultation Review of Systems Review of Systems: All systems reviewed & are unremarkable except as noted in HPI & below Constitutional: no fever, no chills, no sweats, no fatigue and no weakness Respiratory: no cough and no dyspnea Cardiovascular: + edema (mild in right leg); no chest pain Gastrointestinal: no abdominal pain, no nausea, no vomiting, no constipation and no diarrhea/loose stools Integumentary: + wounds (right great toe, malodorous) Physical Exam Constitutional: WD/WN, vitals as above Eyes: PERRL, conjunctivae normal, anicteric sclerae ENMT: external ear and nose normal, oropharynx normal Neck: trachea midline, no thyromegaly Respiratory: normal respiratory effort, lungs clear to auscultation Cardiovascular: RRR, no murmur, no edema Gastrointestinal (Abdomen): normal bowel sounds, soft, nontender, no hepatosplenomegaly Musculoskeletal: no cyanosis or clubbing, extremities motor strength 5/5 Skin: no rashes, warm and dry + wound (right great toe, plantar surface, non-tender, malodorous) Neurologic: PERRL, EOMI, accommodation nl, no face palsy, no dysarthria deep tendon reflexes 2+ bilaterally; + abnormal touch/pain/proprioception (decreased sensation to all three in lower extremities) Psychiatric: A+Ox3, euthymic affect Lymphatic: no cervical or axillary lymphadenopathy Results & Data Vital Signs (Past 12 Hours) Vital Signs Temp Pulse Resp BP Pulse Ox 03/12/19 07:12 36.9 C 88 16 122/69 94 Laboratory Results Laboratory Results - last 24 hr 03/11/19 03/11/19 03/11/19 17:25 17:25 17:25 WBC 6.49 RBC 3.81 L Hgb 11.2 L Hct 33.0 L MCV 86.6 MCH 29.4 MCHC 33.9 RDW Std Deviation 40.3 RDW Coeff of Bri 12.6 Plt Count 301 MPV 8.8 Immature Gran % (Auto) 0.2 Neut % (Auto) 62.3 Lymph % (Auto) 21.1 [place] % (Auto) 11.9 Eos % (Auto) 4.0 Baso % (Auto) 0.5 Immature Gran # (Auto) 0.01 Neut # (Auto) 4.05 Lymph # (Auto) 1.37 [place] # (Auto) 0.77 H Eos # (Auto) 0.26 Baso # (Auto) 0.03 ESR > 140 H PT 10.2 INR 1.0 APTT 25.2 PTT Ratio 0.9 Sodium Potassium Chloride Carbon Dioxide Anion Gap BUN Creatinine Est Cr Clr Drug Dosing Est GFR ( Amer) Est GFR (Non-Af Amer) BUN/Creatinine Ratio Glucose POC Glucose Estimat Average Glucose Hemoglobin A1c Calcium Total Bilirubin AST ALT Alkaline Phosphatase C-Reactive Protein Total Protein Albumin Globulin Albumin/Globulin Ratio Procalcitonin 03/11/19 03/11/19 03/11/19 17:25 17:25 21:22 WBC RBC Hgb Hct MCV MCH MCHC RDW Std Deviation RDW Coeff of Bri Plt Count MPV Immature Gran % (Auto) Neut % (Auto) Lymph % (Auto) [place] % (Auto) Eos % (Auto) Baso % (Auto) Immature Gran # (Auto) Neut # (Auto) Lymph # (Auto) [place] # (Auto) Eos # (Auto) Baso # (Auto) ESR PT INR APTT PTT Ratio Sodium 141 Potassium 4.5 Chloride 106 Carbon Dioxide 30 Anion Gap 5.0 BUN 14 Creatinine 1.21 Est Cr Clr Drug Dosing 55.4 Est GFR ( Amer) 71.4 Est GFR (Non-Af Amer) 61.6 BUN/Creatinine Ratio 11.3 Glucose 135 H POC Glucose 96 Estimat Average Glucose Hemoglobin A1c Calcium 8.9 Total Bilirubin 0.3 AST 10 L ALT 14 Alkaline Phosphatase 62 C-Reactive Protein 5.78 H Total Protein 8.0 Albumin 3.0 L Globulin 5.0 H Albumin/Globulin Ratio 0.6 L Procalcitonin 0.05 03/12/19 03/12/19 03/12/19 06:58 06:58 06:58 WBC 5.30 RBC 3.62 L Hgb 10.5 L Hct 31.3 L MCV 86.5 MCH 29.0 MCHC 33.5 RDW Std Deviation 40.1 RDW Coeff of Bri 12.5 Plt Count 244 MPV 8.5 Immature Gran % (Auto) 0.0 Neut % (Auto) 65.1 Lymph % (Auto) 19.2 [place] % (Auto) 10.2 Eos % (Auto) 5.1 Baso % (Auto) 0.4 Immature Gran # (Auto) 0.00 Neut # (Auto) 3.45 Lymph # (Auto) 1.02 L [place] # (Auto) 0.54 Eos # (Auto) 0.27 Baso # (Auto) 0.02 ESR PT 10.7 INR 1.0 APTT 27.6 PTT Ratio 1.0 Sodium 141 Potassium 4.3 Chloride 107 Carbon Dioxide 29 Anion Gap 5.0 BUN 15 Creatinine 1.27 Est Cr Clr Drug Dosing 52.8 Est GFR ( Amer) 67.3 Est GFR (Non-Af Amer) 58.1 BUN/Creatinine Ratio 11.6 Glucose 123 H POC Glucose Estimat Average Glucose Hemoglobin A1c Calcium 8.0 L Total Bilirubin 0.4 AST 6 L ALT 12 Alkaline Phosphatase 53 C-Reactive Protein Total Protein 7.0 Albumin 2.5 L Globulin 4.5 H Albumin/Globulin Ratio 0.6 L Procalcitonin 03/12/19 03/12/19 03/12/19 06:58 08:17 08:48 WBC 5.35 RBC 3.93 L Hgb 11.2 L Hct 33.8 L MCV 86.0 MCH 28.5 MCHC 33.1 RDW Std Deviation 39.4 RDW Coeff of Bri 12.4 Plt Count 282 MPV 8.6 Immature Gran % (Auto) 0.2 Neut % (Auto) 63.1 Lymph % (Auto) 20.0 [place] % (Auto) 10.1 Eos % (Auto) 6.0 Baso % (Auto) 0.6 Immature Gran # (Auto) 0.01 Neut # (Auto) 3.38 Lymph # (Auto) 1.07 L [place] # (Auto) 0.54 Eos # (Auto) 0.32 Baso # (Auto) 0.03 ESR PT INR APTT PTT Ratio Sodium Potassium Chloride Carbon Dioxide Anion Gap BUN Creatinine Est Cr Clr Drug Dosing Est GFR ( Amer) Est GFR (Non-Af Amer) BUN/Creatinine Ratio Glucose POC Glucose 129 H Estimat Average Glucose 163 Hemoglobin A1c 7.3 H Calcium Total Bilirubin AST ALT Alkaline Phosphatase C-Reactive Protein Total Protein Albumin Globulin Albumin/Globulin Ratio Procalcitonin 03/12/19 03/12/19 08:48 12:14 WBC RBC Hgb Hct MCV MCH MCHC RDW Std Deviation RDW Coeff of Bri Plt Count MPV Immature Gran % (Auto) Neut % (Auto) Lymph % (Auto) [place] % (Auto) Eos % (Auto) Baso % (Auto) Immature Gran # (Auto) Neut # (Auto) Lymph # (Auto) [place] # (Auto) Eos # (Auto) Baso # (Auto) ESR PT 10.3 INR 1.0 APTT 25.9 PTT Ratio 1.0 Sodium Potassium Chloride Carbon Dioxide Anion Gap BUN Creatinine Est Cr Clr Drug Dosing Est GFR ( Amer) Est GFR (Non-Af Amer) BUN/Creatinine Ratio Glucose POC Glucose 180 H Estimat Average Glucose Hemoglobin A1c Calcium Total Bilirubin AST ALT Alkaline Phosphatase C-Reactive Protein Total Protein Albumin Globulin Albumin/Globulin Ratio Procalcitonin Diagnostic Findings XR foot RT min 3V routine CLINICAL HISTORY: possible infection, great toe infection. Pain. COMPARISON: None. DISCUSSION: Destructive changes involving the tuft of the distal phalanx of the great toe. Moderate localized soft tissue edematous change. This appearance is consistent with that of osteomyelitis. Mild degenerative change of all remaining components of the foot. Dorsal soft tissue edematous change. Alignment is anatomic. IMPRESSION: 1. Destructive changes involving the tuft of the distal phalanx of the great toe. 2. This appearance is consistent with that of osteomyelitis. Medications Administered Current Inpatient Medications Acetaminophen (Tylenol) 650 mg PO Q4H PRN PRN Reason: pain/fever Stop: 04/10/19 21:09 Acetaminophen (Ofirmev) 1,000 mg IV Q8H PRN PRN Reason: Pain or Fever Stop: 04/10/19 21:09 Al Hydrox/Mg Hydrox/Simethicone (Maalox) 30 ml PO Q6H PRN PRN Reason: Dyspepsia Stop: 04/10/19 21:09 Aspirin (Ecotrin Ectab) 81 mg PO DAILY [facility] Stop: 04/11/19 08:59 Last Admin: 03/12/19 08:38 Dose: 81 mg Documented by: Dextrose (Dextrose 50%) 25 - 50 ml IV UD PRN; Protocol PRN Reason: Hypoglycemia Protocol Stop: 04/10/19 21:09 Glucagon (Glucagen) 1 mg SQ UD PRN; Protocol PRN Reason: Hypoglycemia Protocol Stop: 04/10/19 21:09 Glucose (Glucose 40%) 15 - 30 gm PO UD PRN; Protocol PRN Reason: Hypoglycemia Protocol Stop: 04/10/19 21:09 Glucose (Dex4 Glucose) 4 - 8 tabs PO UD PRN; Protocol PRN Reason: Hypoglycemia Protocol Stop: 04/10/19 21:09 Piperacillin Sod/Tazobactam (Sod 3.375 gm/ Dextrose) 115 mls @ 28.75 mls/hr IV Q8H VAISHALI; Protocol Stop: 03/22/19 01:59 Last Admin: 03/12/19 09:49 Dose: 28.8 mls/hr Documented by: Vancomycin HCl 1,250 mg/ (Sodium Chloride) 275 mls @ 125 mls/hr IV Q18H VAISHALI; Protocol Stop: 03/22/19 07:59 Last Infusion: 03/12/19 11:05 Dose: Infused Documented by: Heparin Sodium/Dextrose (Heparin Sodium/Dextrose) 25,000 units in 500 mls @ 25 mls/hr IV .Q20H VAISHALI; Protocol Stop: 04/11/19 07:44 Last Admin: 03/12/19 09:14 Dose: 1,250 units/hr, 25 mls/hr Documented by: Insulin Aspart (Novolog Flexpen) 0 units SC ACHS VAISHALI Stop: 04/10/19 21:59 Last Admin: 03/12/19 08:39 Dose: 3 units Documented by: Magnesium Hydroxide (Milk Of Magnesia) 30 ml PO Q6H PRN PRN Reason: Constipation Stop: 04/10/19 21:09 Miscellaneous (Carbohydrates For Hypoglycemia) 15 - 30 gm PO UD PRN PRN Reason: Hypoglycemia Treatment Stop: 04/10/19 21:09 Miscellaneous Information (Consult) 1 ea N/A UD PRN PRN Reason: Consult Stop: 04/10/19 21:09 Miscellaneous Information (Consult) 1 ea N/A UD PRN PRN Reason: Consult Stop: 04/10/19 21:09 Ondansetron HCl (Zofran) 4 mg IV Q6H PRN PRN Reason: Nausea Stop: 04/10/19 21:09 Polyethylene Glycol (Miralax Powder Packet) 17 gm PO DAILY PRN PRN Reason: Constipation Stop: 04/10/19 21:09 PG Care Time/CCT Total # of Minutes Spent Total Time Spent with Patient: Total time spent is greater than 50% in coordination of care (as documented) at patient's floor/unit and/or counseling patient:
--- NOTE | 2019-03-12 14:02 | Pharmacy Report ---
Pharmacy Abx Initial Consult - Date of Service March 12, 2019 - Pharmacy Dosing Scope Date of Consult: 03/11/19 Consultation requested by: Dr. Paulino Pharmacy is consulted to initiate Vancomycin and Zosyn IV dosing therapy, order appropriate labs and adjust drug dose/frequency. - Subjective The patient is a 69 year old M admitted on 03/11/19 19:55. - Objective Height: 5 ft 7 in Weight: 76.9 kg Vital Signs (Past 12hrs): Vital Signs Temp Pulse Resp BP Pulse Ox 03/12/19 07:12 36.9 C 88 16 122/69 94 Lab Results (24hrs): Laboratory Tests (24 Hours) 03/12/19 03/12/19 03/12/19 08:48 06:58 06:58 WBC 5.35 5.30 Neut # (Auto) 3.38 3.45 ESR Creatinine 1.27 Est Cr Clr Drug Dosing 52.8 C-Reactive Protein Procalcitonin 03/11/19 03/11/19 03/11/19 17:25 17:25 17:25 WBC Neut # (Auto) ESR > 140 H Creatinine 1.21 Est Cr Clr Drug Dosing 55.4 C-Reactive Protein 5.78 H Procalcitonin 0.05 03/11/19 17:25 WBC 6.49 Neut # (Auto) 4.05 ESR Creatinine Est Cr Clr Drug Dosing C-Reactive Protein Procalcitonin Micro Results: Microbiology 03/11/19 17:00 Toe,Right Great Gram Stain - Final 03/11/19 17:00 Toe,Right Great Wound Culture - Preliminary Group G Beta Strep Group B Beta Strep 03/11/19 17:30 Aerobic Blood Culture - Pending Blood Anaerobic Blood Culture - Pending 03/11/19 17:25 Aerobic Blood Culture - Pending Blood Anaerobic Blood Culture - Pending - Risk Factors for Resistance * Antimicrobial use within the last 90 days: Cephalexin - Assessment & Plan Assessment 69 year old M started on IV vancomycin and zosyn for osteomyelitis of the right great toe Patient has a PMHx significant for DM and amputation of Left 2nd toe Initial wound culture is growing Group B/G beta-hemolytic Strep; Blood Cx still pending Renal function today is slightly elevated from baseline (1.27 vs 1.0, respectively) Plan IV Vancomycin and Zosyn for treatment of Osteomyelitis Vancomycin IV * Estimated PK Parameters: Vd 0.7 L/kg, Eleuterio 0.050 hr-1, t1/2 ~14 hrs * Loading dose: 1500 mg (~ 20 mg/kg) * Maintenance dose: 1250 mg IV (~ 16 mg/kg) every 18 hours (Higher dose with less frequent interval as compared to population kinetic calculations) * Goal trough level for Osteomyelitis: 15 to 20 mcg/mL * No level ordered as of yet; will assess renal function tomorrow and base level off that Piperacillin/tazobactam * 3.375 g bolus administered over 30 minutes, then 3.375 g IV extended infusion every 8 hours for CrCl greater than 20 mL/min Pharmacy will continue to follow and will adjust dose/frequency as necessary. Thank you.
[2019-03-12 15:39] LABS: Partial Thromboplastin Ratio 1.3
--- NOTE | 2019-03-12 15:47 | Orthopedic Consultation ---
Date of Consultation March 12, 2019 Assessment & Plan (1) Osteomyelitis of great toe of right foot: He was seen and examined by Dr. Wasserman today as well. We discussed treatment options with him today including amputation of the great toe vs wound care and antibiotics. It is unlikely that this wound is going to heel and Dr. Wasserman did recommend amputation of the toe. He is going to think about this and discuss with his and let us know. We will make him npo after midnight and plan to do this procedure tomorrow if he decides to proceed. History of Present Illness Reason for Consultation: right great toe infection Attending Physician: Leon Umanzor DO History of Present Illness Mr. Lombardo is a 69 y/o male with h/o diabetes, diabetic neuropathy. He states he has had this wound on the right great toe approx 2 weeks. He thought it was just a blister initially. He was seen at his primary care office yesterday and admitted to [facility] for further management. He is receiving IV antibiotics. He had his left 2nd toe amputated by Dr. Cuellar last year and that has healed well. He denies fever or chills. Allergies Allergy/AdvReac Type Severity Reaction Status Date / Time ranitidine Allergy Unknown Verified 03/11/19 18:45 Home Medications Home Medications Medication Instructions Recorded Confirmed Type aspirin 81 mg tablet,delayed 81 mg PO DAILY 04/17/18 03/11/19 History release cephalexin 250 mg PO QID 03/11/19 03/11/19 History metformin ER 500 mg 1,000 mg PO AMPM #120 tab 03/11/19 03/11/19 History tablet,extended release 24 hr Patient History Medical History Acquired claw toe of left foot (Acute) Acquired claw toe of right foot (Acute) Callus (Acute) Diabetic peripheral neuropathy (Acute) 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 (Acute) Coronary artery disease (Chronic) Diabetes mellitus type II, uncontrolled (Chronic) GERD (gastroesophageal reflux disease) (Chronic) Myocardial infarction (Chronic) Surgical History H/O angioplasty (Chronic) Social History Preferred Language: Setswana Communication Ability: Effective Visual Impairment: No Limitations Hearing Ability: Normal Roustabout Supervisor Required: No Beliefs That Will Affect Care: None marital status: Current Living Situation: Family Current Living Situation Comment: 2 story home; railings present current occupational status: employed 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 Integumentary: as per Subjective / HPI Neurologic: He reports diminished sensation in his feet from neuropathy Physical Exam Physical Exam: Right great toe/right foot: He has a large ulcer with necrotic area on the plantar side of the toe and involving a large portion of the toe. There is some swelling of the toe. No erythema extending proximally into the foot. Results & Data Vital Signs (Past 12 Hours) Vital Signs Temp Pulse Resp BP Pulse Ox 03/12/19 07:12 36.9 C 88 16 122/69 94 Diagnostic Findings xrays show erosion of the distal phalanx of the great toe
[2019-03-12] MEDS ORDERED: HEPARIN IV BOLUS 6,000 UNITS in SYRINGE 0 ML IV ONE (16:05)
--- NOTE | 2019-03-12 17:17 | Anesthesiology Consultation ---
Date of Service March 12, 2019 Assessment & Plan (1) Encounter for pre-operative examination: Chart Review Chart Review: Acceptable Risk for Surgery (wrote for an ECG to be done for a preop baseline, not completed yet) History Surgery Operation Date: 03/13/19 08:50 Proposed Procedures p Right Great Toe Amputation - Hugh Wasserman MD Height/Weight Height: 5 ft 7 in Weight: 76.9 kg Allergies Allergy/AdvReac Type Severity Reaction Status Date / Time ranitidine Allergy Unknown Verified 03/11/19 18:45 Medications Home Medications Medication Instructions Recorded Confirmed Last Taken aspirin 81 mg tablet,delayed 81 mg PO DAILY 04/17/18 03/11/19 Unknown release cephalexin 250 mg PO QID 03/11/19 03/11/19 Unknown metformin ER 500 mg 1,000 mg PO AMPM #120 tab 03/11/19 03/11/19 Unknown tablet,extended release 24 hr Active Medications Generic Name Dose Route Start Last Admin Trade Name Freq PRN Reason Stop Dose Admin Aspirin 81 mg 03/12/19 09:00 03/12/19 08:38 Ecotrin Ectab PO 04/11/19 08:59 81 mg DAILY VAISHALI Administration Piperacillin Sod/Tazobactam 115 mls @ 28.75 mls/hr 03/12/19 02:00 03/12/19 13:29 Sod 3.375 gm/ Dextrose IV 03/22/19 01:59 Infused Q8H VAISHALI Infusion Protocol Vancomycin HCl 1,250 mg/ 275 mls @ 125 mls/hr 03/12/19 08:00 03/12/19 11:05 Sodium Chloride IV 03/22/19 07:59 Infused Q18H VAISHALI Infusion Protocol Heparin Sodium/Dextrose 25,000 units in 500 mls @ 31 mls/hr 03/12/19 07:45 03/12/19 16:35 Heparin Sodium/Dextrose IV 04/11/19 07:44 1,550 units/hr .Q16H8M VAISHALI 31 mls/hr Titration Protocol 1,550 UNITS/HR Insulin Aspart 0 units 03/11/19 22:00 03/12/19 13:14 Novolog Flexpen SC 04/10/19 21:59 4 units ACHS VAISHALI Administration Past Medical History Medical History History of partial ray amputation of second toe of left foot Acquired claw toe of left foot (Acute) Acquired claw toe of right foot (Acute) Callus (Acute) Diabetic peripheral neuropathy (Acute) 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 (Acute) Coronary artery disease (Chronic) Diabetes mellitus type II, uncontrolled (Chronic) GERD (gastroesophageal reflux disease) (Chronic) Myocardial infarction (Chronic) Past Surgical History Surgical History H/O angioplasty (Chronic) Social History Smoking Status: Former smoker Do You Dip or Chew Tobacco: No Smoking End Date: 20 years ago Hx Alcohol Use: No Hx Substance Use: No Physical Exam Vital Signs Last Vital Signs Temp 37.3 C 03/12/19 16:16 Pulse 89 03/12/19 16:16 Resp 18 03/12/19 16:16 BP 130/75 03/12/19 16:16 Pulse Ox 94 03/12/19 16:16 Testing Laboratory Results 03/12/19 08:48 03/12/19 06:58 PT 10.3 Seconds (9.0-12.0) 03/12/19 08:48 INR 1.0 (0.9-1.1) 03/12/19 08:48 APTT 35.0 Seconds (21.0-31.0) H 03/12/19 15:09 Hemoglobin A1c 7.3 % (4.5-5.6) H 03/12/19 06:58 03/11/19 17:00 Gram Stain - Final Toe,Right Great Wound Culture - Preliminary Group G Beta Strep Group B Beta Strep 03/12/19 03/12/19 12:14 08:17 POC Glucose 180 H 129 H Echocardiogram Date: 01/25/18 EF: 55-60% LV Function: normal Valvular Disease: + no significant valvular disease
[2019-03-12 22:47] LABS: Partial Thromboplastin Time 26.2 Seconds (21.0-31.0)
[2019-03-13] MEDS: VANCOMYCIN HCL 1,250 MG in SODIUM CHLORIDE 0.9% 250 ML IV SCH ×2 (02:42→20:41)
[2019-03-13] MEDS: PIPERACILLIN/TAZOBACTAM 3.375 GM in DEXTROSE 5% 100 ML IV SCH ×3 (02:42→17:49)
[2019-03-13] MEDS ORDERED: Nursing to Pharmacy Communication ONE ×2 (04:01→12:43)
[2019-03-13] MEDS ORDERED: INSULIN ASPART 100 UNITS/ML 3 ML PEN SC SCH (06:00)
[2019-03-13 08:01] LABS: Basophils # (auto) 0.03 K/uL (0-0.2); Basophils % (auto) 0.6 %; Eosinophils # (auto) 0.29 K/uL (0-0.5); Eosinophils % (auto) 5.4 %; Hematocrit (blood only) 33.2 % (42-52); Hemoglobin 10.8 g/dL (14.0-18.0); Immature Granulocytes # (auto) 0.01 K/uL (0.00-0.02); Immature Granulocytes % (auto) 0.2 %; Lymphocytes # (auto) 1.42 K/uL (1.2-3.4); Lymphocytes % (auto) 26.4 %; Mean Corpuscular Hgb Conc 32.5 g/dL (32-36); Mean Corpuscular Volume 84.5 fL (80-100); Mean Platelet Volume 8.3 fL (7.4-10.4); Monocytes # (auto) 0.52 K/uL (0.11-0.59); Monocytes % (auto) 9.7 %; Neutrophils % (auto) 57.7 %; Platelet Count 255 K/uL (130-400); RDW Coefficient of Variation 12.5 % (11.5-14.5); RDW Standard Deviation 38.6 fL (36.4-46.3); Red Blood Count 3.93 M/uL (4.7-6.1); White Blood Count 5.37 K/uL (4.8-10.8)
[2019-03-13 08:13] LABS: Partial Thromboplastin Ratio 0.9; Partial Thromboplastin Time 25.1 Seconds (21.0-31.0); Prothrombin Time 10.3 Seconds (9.0-12.0)
[2019-03-13 08:34] LABS: Albumin Level 2.8 gm/dl (3.4-5.0); BUN Creatinine Ratio 10.1 (10-20); Calcium 8.6 mg/dl (8.5-10.1); Creatinine Clr Calc Pharmacy 47.2 ml/min; Est GFR (African American) 58.8; Est GFR (Non-African American) 50.7; Magnesium 2.1 mg/dl (1.8-2.4); Potassium 4.1 mmol/L (3.5-5.1)
[2019-03-13 08:37] LABS: Albumin Globulin Ratio 0.6 (0.9-2); Bilirubin,Total 0.4 mg/dl (0.2-1); Globulin 4.8 gm/dl (2.5-4.0); Total Protein 7.6 gm/dl (6.4-8.2)
--- NOTE | 2019-03-13 08:58 | History & Physical Bridge Note ---
Date of Service March 13, 2019 History & Physical Bridge Note I have examined the patient, reviewed the History & Physical and in the interval since the performance of the History & Physical I have noted the following changes of clinical significance: no changes noted
[2019-03-13] MEDS ORDERED: fentaNYL citrate 100 MCG/2 ML VIAL ONE (09:21)
--- NOTE | 2019-03-13 09:21 | Progress Note ---
DATE: 03/13/2019 SUBJECTIVE: 69-year-old gentleman admitted with a right great toe ulcer with osteomyelitis of the great toe. He says it has been going on for a couple weeks, but clearly much longer than that. No interval change in symptoms. Really does not have much sensation in his foot due to his neuropathy. No real particular pain. OBJECTIVE: VITAL SIGNS: Temperature 36.7. Vital signs stable. PHYSICAL EXAMINATION: GENERAL: Pleasant elderly male. He is sitting up in bed and talking to his family. Looks comfortable. EXTREMITIES: Examination of the right toe reveals a very odorous toe with a fairly large plantar ulcer over the IP joint. Not a lot of surrounding cellulitis. Some mild swelling. Gross decreased sensation in his foot. ASSESSMENT: 69-year-old diabetic with a right great toe diabetic foot ulcer with underlying osteomyelitis. This has clearly been going on for several months. There is no chance that this will heal without short of amputation. PLAN: We talked about treatment options. We are going to proceed with right great toe amputation. Even this is questionable as far as healing but gives him the best chance of having a good working foot. PLAN: We will take him to the operating room today and do a right great toe amputation. The risks and benefits of this procedure were explained to the patient including but not limited to DVT, PE, , infection, neurological injury, vascular injury, progression of infection, need for further surgery in future, failure of the wound to heal, etc. The patient understands and desires to proceed. Informed consent was obtained. The patient does have a thrombosis to some degree in his right leg. He is holding the heparin now and will start that postop. All questions were answered.
[2019-03-13] MEDS ORDERED: LIDOCAINE HCL 2% 2 ML VIAL/AMP(20MG/ML) INFIL ONE (09:22)
[2019-03-13] MEDS ORDERED: PROPOFOL IV EMULSION 10 MG/ML 20 ML VIAL IV ONE (09:22)
[2019-03-13] MEDS ORDERED: ePHEDrine sulfate 50 MG/ML AMP IV PRN (09:30)
[2019-03-13] MEDS ORDERED: ONDANSETRON INJ 2 MG/ML 2 ML VIAL IV PRN ×2 (09:30→11:38)
[2019-03-13] MEDS ORDERED: ATROPINE SULFATE 0.1 MG/ML 10ML SYR IV PRN (09:30)
[2019-03-13] MEDS ORDERED: fentaNYL citrate 100 MCG/2 ML VIAL IV PRN (09:30)
[2019-03-13] MEDS ORDERED: BACITRACIN INJ 50,000 UNIT VIAL ONE (09:33)
[2019-03-13] MEDS ORDERED: ONDANSETRON INJ 2 MG/ML 2 ML VIAL ONE (10:02)
[2019-03-13] MEDS: BUPIVACAINE/EPINEPHRINE 0.5% MPF 1:200,000 30 ML VIAL ONE ×2 (10:14→10:26)
--- NOTE | 2019-03-13 10:22 | Post Operative Brief Note ---
Immediate Post Op Note v1 Date of Surgery March 13, 2019 Pre & Post Diagnosis Operation Date: 03/13/19 08:50 Pre-Op Diagnosis: Right Great Toe: Osteomyelitis with large ulcer and necrotic area on the plantar side Post-Op Diagnosis: Right Great Toe: Osteomyelitis with large ulcer and necrotic area on the plantar side Procedure Operation Date: 03/13/19 08:50 Actual Procedures p Right Great Toe Amputation(Right) - Hugh Wasserman MD Surgeon Hugh Wasserman MD [employer] Finisher And [employer] [facility], [facility] Estimated Blood Loss 5 Findings Consistent with Post-Op Diagnosis Fluids 500 cc Specimens Right Great Toe Anesthesia Type General Complications none Disposition Accompanied Patient To Recovery: No Disposition: Recovery Room
--- NOTE | 2019-03-13 10:51 | Anesthesiology Progress Note ---
Date of Service March 13, 2019 Anesthesia Post Procedure Vital Signs Vital Signs: Temp Pulse Pulse Resp BP Pulse Ox 03/13/19 10:45 87 12 109/65 94 03/13/19 10:35 88 12 110/70 96 03/13/19 10:26 97.3 F L 89 12 128/73 98 03/13/19 09:20 98.2 F 91 H 22 143/83 H 95 03/13/19 08:03 98.4 F 102 H 16 132/82 100 03/12/19 23:54 98.2 F 92 H 16 130/76 96 03/12/19 16:16 99.1 F 89 18 130/75 94 Pain Intensity Right Foot: Pain Intensity: 0 Transfer of Care Handoff Completed per policy Notes Mental Status: alert / awake / arousable and participated in evaluation Patient Amnestic to Procedure: Yes Nausea / Vomiting: adequately controlled Pain: adequately controlled Airway Patency, RR, SpO2: stable & adequate BP & HR: stable & adequate Hydration State: stable & adequate Anesthetic Complications: no major complications apparent and Pt Satisfied with anesthetic care
[2019-03-13] MEDS ORDERED: METOCLOPRAMIDE HCL INJ 5 MG/ML 2 ML VIAL IV PRN (11:38)
[2019-03-13] MEDS ORDERED: MAGNESIUM HYDROXIDE SUSP 30 ML UDC PO PRN (11:38)
[2019-03-13] MEDS ORDERED: SODIUM CHLORIDE 0.9% 1000ML 1,000 ML IV SCH (11:38)
[2019-03-13] MEDS ORDERED: BISACODYL 10 MG SUPP PR PRN (11:38)
[2019-03-13] MEDS ORDERED: NALOXONE HCL 0.4 MG/1 ML VIAL/CARP IV PRN (11:38)
--- NOTE | 2019-03-13 12:20 | Operative Report ---
DATE OF OPERATION: 03/13/2019 SURGEON: Hugh Wasserman MD. TEACHERS ASSISTANT: ZHANE Quevedo. PREOPERATIVE DIAGNOSES: Right great toe osteomyelitis with plantar diabetic foot ulcer. POSTOPERATIVE DIAGNOSES: Right great toe osteomyelitis with plantar diabetic foot ulcer. PROCEDURE: Right great toe amputation. COMPLICATIONS: None. ESTIMATED BLOOD LOSS: 5 mL. FLUID REPLACEMENT: 500 mL crystalloid fluid replacement. TOURNIQUET TIME: 9 minutes at 300 mmHg. ANESTHESIA: General. SPECIMENS: Right toe sent for pathology. OPERATIVE INDICATIONS: The patient is a 69-year-old long-term diabetic who presented with a several week to month history of right great toe wound. He said it was couple weeks, but clearly going on much longer than that. He does have a history of left second toe amputation done in the past. He was admitted to the hospital. X-rays showed destruction of his distal phalanx. He had a plantar great toe ulcer. The patient was indicated for amputation. OPERATIVE PROCEDURE: The patient was taken to the Operating Room, identified and placed on the operating table in supine position. All contact areas were appropriately padded. IV antibiotics provided by Anesthesia team. General anesthetic was implemented by Anesthesia team. A right ankle tourniquet was then placed. The right toe dressing was removed and then the foot was scrubbed with Hibiclens. It was then prepped with Hibiclens and then draped in the usual sterile fashion. The right leg was elevated but not exsanguinated. The tourniquet was placed at 300 mmHg. A racquet/fish mouth type incision was made over the great toe proximal to the ulcerated area. Sharp dissection was carried out through subcutaneous tissue down to the level of the toe. I then skeletonized the proximal phalanx back to the MTP joint, disarticulated the proximal phalanx from the MTP joint and removed the toe. This is sent off. We then changed gloves. I irrigated the wound extensively. The flexor and extensor tendons were identified, traction was applied, and they were cut and allowed to retract. I then irrigated the wound extensively. The tourniquet was then let down for a tourniquet time of 9 minutes. Hemostasis was assured with use of electrocautery. The skin was then closed with 3-0 nylon suture in simple fashion. The foot was then cleaned and dried and a sterile dressing of Xeroform, 4 x 4, sterile cast padding and a Coban wrap followed by postop shoe were applied. The patient was then brought out of general anesthesia and transferred to the Recovery Room in stable condition. The patient tolerated the procedure well with no complication. All needle and sponge counts were correct at the end of the operation. I attest to the content of the Intraoperative Record and any orders documented therein. Any exception s are noted below.
[2019-03-13] MEDS: ASPIRIN 81 MG ECTAB PO SCH (13:17)
[2019-03-13] MEDS: INSULIN ASPART 100 UNITS/ML 3 ML PEN SC SCH ×3 (13:20→20:47)
[2019-03-13] MEDS: Heparin IV Low Dose *NO* Bolus IV SCH ×3 (17:43→17:48)
[2019-03-13] MEDS: FERROUS GLUCONATE 324 MG TAB PO SCH (17:49)
[2019-03-13] MEDS ORDERED: VANCOMYCIN TROUGH ONE (19:30)
--- NOTE | 2019-03-13 19:43 | Hospitalist Progress Note ---
Date of Service March 13, 2019 Assessment & Plan (1) Osteomyelitis of great toe of right foot: Diabetic foot ulcer right great toe/osteomyelitis- Vancomycin IV and Zosyn IV, wound cultures growing gram negative bacilli and beta strep, two types Consult infectious disease, Dr. Hernandez following will determine antibiotics tomorrow based on sensitivities s/p right great toe amputation on 03/13 tolerated well discharge instructions per Dr. Wasserman, likely okay to go home tomorrow (2) Deep vein thrombosis (DVT) of popliteal vein of right lower extremity: Patient was started on therapeutic Lovenox in the ED. changed to heparin IV, standard with no bolus, started on morning 03/12 Ordered hypercoagulable panel, pending He denies any symptoms of chest pain or shortness of breath. heparin drip stopped for surgery will resume low dose no bolus this evening at 2100 will discuss oral options tomorrow with orthopedics, see what they are comfortable with ideally would use Xarelto (3) Diabetic ulcer of right great toe: As above continue antibiotics, s/p amputation (4) Type 2 diabetes mellitus: Hold metformin. Placed on Accu-Cheks with NovoLog coverage. Check a hemoglobin A1c, it is 7.3%, was actually 6.7% a few months ago according to patient monitor for hypoglycemia, no episodes (5) Anemia: Chronically anemic, with range 9.9-13.0. 10.8 today (6) CAD (coronary artery disease): Aspirin 81 mg p.o. daily. no chest pain or pressure today after surgery (7) Myocardial infarction: No acute issues at this time. (8) Chronic kidney disease, stage III (moderate): Cr at baseline, continue to monitor Subjective patient seen today after right great toe amputation tolerated procedure well, minimal pain no chest pain, no dyspnea, no fever, no sweats, no nausea or vomiting discussed plan with patient's and the patient will see if he needs prolonged IV antibiotics now that the source of infection was amputated reviewed labs, normal WBC, Hb stable, Cr and electrolytes stable discussed options for anticoagulation with patient, will see what Dr. Wasserman is okay with tomorrow Review of Systems Review of Systems: All systems reviewed & are unremarkable except as noted in HPI & below Physical Exam Constitutional: WD/WN, vitals as above Eyes: PERRL, conjunctivae normal, anicteric sclerae ENMT: external ear and nose normal, oropharynx normal Neck: trachea midline, no thyromegaly Respiratory: normal respiratory effort, lungs clear to auscultation Cardiovascular: RRR, no murmur, no edema Gastrointestinal (Abdomen): normal bowel sounds, soft, nontender, no hepatosplenomegaly Musculoskeletal: no cyanosis or clubbing, extremities motor strength 5/5 (s/p amputation of right great toe) Skin: no rashes, warm and dry Neurologic: PERRL, EOMI, accommodation nl, no face palsy, no dysarthria deep tendon reflexes 2+ bilaterally; + abnormal touch/pain/proprioception (decreased sensation to all three in lower extremities) Psychiatric: A+Ox3, euthymic affect Lymphatic: no cervical or axillary lymphadenopathy Results & Data Vital Signs (Past 12 Hours) Vital Signs Temp Pulse Pulse Pulse Resp BP BP 03/13/19 15:02 36.5 C 83 16 92/42 L 03/13/19 14:10 36.5 C 90 16 101/63 03/13/19 13:15 36.6 C 84 15 105/63 03/13/19 12:22 36.3 C L 78 16 122/70 03/13/19 11:45 36.3 C L 78 18 129/75 03/13/19 11:15 36.4 C L 84 18 135/80 03/13/19 10:55 84 12 104/54 L 03/13/19 10:45 87 12 109/65 03/13/19 10:35 88 12 110/70 03/13/19 10:26 36.3 C L 89 12 128/73 03/13/19 09:20 36.8 C 91 H 22 143/83 H 03/13/19 08:03 36.9 C 102 H 16 132/82 Pulse Ox 03/13/19 15:02 94 03/13/19 14:10 93 03/13/19 13:15 95 03/13/19 12:22 93 03/13/19 11:45 89 L 03/13/19 11:15 94 03/13/19 10:55 94 03/13/19 10:45 94 03/13/19 10:35 96 03/13/19 10:26 98 03/13/19 09:20 95 03/13/19 08:03 100 Laboratory Results Laboratory Results - last 24 hr 03/12/19 03/12/19 03/13/19 20:36 22:22 05:44 WBC RBC Hgb Hct MCV MCH MCHC RDW Std Deviation RDW Coeff of Bri Plt Count MPV Immature Gran % (Auto) Neut % (Auto) Lymph % (Auto) Glynn % (Auto) Eos % (Auto) Baso % (Auto) Immature Gran # (Auto) Neut # (Auto) Lymph # (Auto) Glynn # (Auto) Eos # (Auto) Baso # (Auto) PT INR APTT 26.2 PTT Ratio 1.0 Sodium Potassium Chloride Carbon Dioxide Anion Gap BUN Creatinine Est Cr Clr Drug Dosing Est GFR ( Amer) Est GFR (Non-Af Amer) BUN/Creatinine Ratio Glucose POC Glucose 117 H 99 Calcium Magnesium Total Bilirubin AST ALT Alkaline Phosphatase Total Protein Albumin Globulin Albumin/Globulin Ratio 03/13/19 03/13/19 03/13/19 07:46 07:46 07:46 WBC 5.37 RBC 3.93 L Hgb 10.8 L Hct 33.2 L MCV 84.5 MCH 27.5 MCHC 32.5 RDW Std Deviation 38.6 RDW Coeff of Bri 12.5 Plt Count 255 MPV 8.3 Immature Gran % (Auto) 0.2 Neut % (Auto) 57.7 Lymph % (Auto) 26.4 Glynn % (Auto) 9.7 Eos % (Auto) 5.4 Baso % (Auto) 0.6 Immature Gran # (Auto) 0.01 Neut # (Auto) 3.10 Lymph # (Auto) 1.42 Glynn # (Auto) 0.52 Eos # (Auto) 0.29 Baso # (Auto) 0.03 PT 10.3 INR 1.0 APTT 25.1 PTT Ratio 0.9 Sodium 141 Potassium 4.1 Chloride 108 H Carbon Dioxide 27 Anion Gap 7.0 BUN 14 Creatinine 1.42 H Est Cr Clr Drug Dosing 47.2 Est GFR ( Amer) 58.8 Est GFR (Non-Af Amer) 50.7 BUN/Creatinine Ratio 10.1 Glucose 106 H POC Glucose Calcium 8.6 Magnesium 2.1 Total Bilirubin 0.4 AST 10 L ALT 12 Alkaline Phosphatase 56 Total Protein 7.6 Albumin 2.8 L Globulin 4.8 H Albumin/Globulin Ratio 0.6 L 03/13/19 03/13/19 03/13/19 09:11 10:28 12:12 WBC RBC Hgb Hct MCV MCH MCHC RDW Std Deviation RDW Coeff of Bri Plt Count MPV Immature Gran % (Auto) Neut % (Auto) Lymph % (Auto) Glynn % (Auto) Eos % (Auto) Baso % (Auto) Immature Gran # (Auto) Neut # (Auto) Lymph # (Auto) Glynn # (Auto) Eos # (Auto) Baso # (Auto) PT INR APTT PTT Ratio Sodium Potassium Chloride Carbon Dioxide Anion Gap BUN Creatinine Est Cr Clr Drug Dosing Est GFR ( Amer) Est GFR (Non-Af Amer) BUN/Creatinine Ratio Glucose POC Glucose 109 H 143 H 117 H Calcium Magnesium Total Bilirubin AST ALT Alkaline Phosphatase Total Protein Albumin Globulin Albumin/Globulin Ratio 03/13/19 17:20 WBC RBC Hgb Hct MCV MCH MCHC RDW Std Deviation RDW Coeff of Bri Plt Count MPV Immature Gran % (Auto) Neut % (Auto) Lymph % (Auto) Glynn % (Auto) Eos % (Auto) Baso % (Auto) Immature Gran # (Auto) Neut # (Auto) Lymph # (Auto) Glynn # (Auto) Eos # (Auto) Baso # (Auto) PT INR APTT PTT Ratio Sodium Potassium Chloride Carbon Dioxide Anion Gap BUN Creatinine Est Cr Clr Drug Dosing Est GFR ( Amer) Est GFR (Non-Af Amer) BUN/Creatinine Ratio Glucose POC Glucose 121 H Calcium Magnesium Total Bilirubin AST ALT Alkaline Phosphatase Total Protein Albumin Globulin Albumin/Globulin Ratio Medications Administered Current Inpatient Medications Acetaminophen (Tylenol) 650 mg PO Q4H PRN PRN Reason: pain/fever Stop: 04/10/19 21:09 Acetaminophen (Ofirmev) 1,000 mg IV Q8H PRN PRN Reason: Pain or Fever Stop: 04/10/19 21:09 Al Hydrox/Mg Hydrox/Simethicone (Maalox) 30 ml PO Q6H PRN PRN Reason: Dyspepsia Stop: 04/10/19 21:09 Aspirin (Ecotrin Ectab) 81 mg PO DAILY VAISHALI Stop: 04/11/19 08:59 Last Admin: 03/13/19 13:17 Dose: 81 mg Documented by: Bisacodyl (Dulcolax) 10 mg VA DAILY PRN PRN Reason: Constipation Stop: 04/12/19 11:37 Dextrose (Dextrose 50%) 25 - 50 ml IV UD PRN; Protocol PRN Reason: Hypoglycemia Protocol Stop: 04/10/19 21:09 Docusate Sodium (Colace) 100 mg PO BID VAISHALI Stop: 04/12/19 20:59 Ferrous Gluconate (Ferrous Gluconate) 324 mg PO BIDM VAISHALI Stop: 04/12/19 16:59 Last Admin: 03/13/19 17:49 Dose: 324 mg Documented by: Glucagon (Glucagen) 1 mg SQ UD PRN; Protocol PRN Reason: Hypoglycemia Protocol Stop: 04/10/19 21:09 Glucose (Glucose 40%) 15 - 30 gm PO UD PRN; Protocol PRN Reason: Hypoglycemia Protocol Stop: 04/10/19 21:09 Glucose (Dex4 Glucose) 4 - 8 tabs PO UD PRN; Protocol PRN Reason: Hypoglycemia Protocol Stop: 04/10/19 21:09 Piperacillin Sod/Tazobactam (Sod 3.375 gm/ Dextrose) 115 mls @ 28.75 mls/hr IV Q8H [facility]ALI; Protocol Stop: 03/22/19 01:59 Last Admin: 03/13/19 17:49 Dose: 28.8 mls/hr Documented by: Vancomycin HCl 1,250 mg/ (Sodium Chloride) 275 mls @ 125 mls/hr IV Q18H [facility]; Protocol Stop: 03/22/19 07:59 Last Infusion: 03/13/19 06:06 Dose: Infused Documented by: Heparin Sodium/Dextrose (Heparin Sodium/Dextrose) 25,000 units in 500 mls @ 17 mls/hr IV .Q24H [facility]; Protocol Stop: 04/12/19 20:59 Insulin Aspart (Novolog Flexpen) 0 units SC ACHS [facility] Stop: 04/12/19 12:59 Last Admin: 03/13/19 18:55 Dose: 4 units Documented by: Magnesium Hydroxide (Milk Of Magnesia) 30 ml PO Q6H PRN PRN Reason: Constipation Stop: 04/10/19 21:09 Magnesium Hydroxide (Milk Of Magnesia) 30 ml PO Q6H PRN PRN Reason: Constipation Stop: 04/12/19 11:37 Metoclopramide HCl (Reglan) 10 mg IV Q6H PRN PRN Reason: Nausea And Vomiting Stop: 04/12/19 11:37 Miscellaneous (Carbohydrates For Hypoglycemia) 15 - 30 gm PO UD PRN PRN Reason: Hypoglycemia Treatment Stop: 04/10/19 21:09 Miscellaneous Information (Consult) 1 ea N/A UD PRN PRN Reason: Consult Stop: 04/10/19 21:09 Miscellaneous Information (Consult) 1 ea N/A UD PRN PRN Reason: Consult Stop: 04/10/19 21:09 Multivitamins (Multivitamin Tab) 1 tab PO QAM [facility]ALI Stop: 04/13/19 08:59 Naloxone HCl (Narcan) 0.1 mg IV Q5M PRN PRN Reason: Oversedation/Resp Depression Stop: 04/12/19 11:37 Ondansetron HCl (Zofran) 4 mg IV Q6H PRN PRN Reason: Nausea Stop: 04/10/19 21:09 Ondansetron HCl (Zofran) 4 mg IV Q6H PRN PRN Reason: Nausea And Vomiting Stop: 04/12/19 11:37 Polyethylene Glycol (Miralax Powder Packet) 17 gm PO DAILY PRN PRN Reason: Constipation Stop: 04/10/19 21:09 Sennosides (Senokot) 17.2 mg PO HS VAISHALI Stop: 04/12/19 20:59 PG Care Time/CCT Total # of Minutes Spent Total Time Spent with Patient: Total time spent is greater than 50% in coordination of care (as documented) at patient's floor/unit and/or counseling patient:
[2019-03-13] MEDS: DOCUSATE SODIUM 100 MG CAP PO SCH ×2 (20:41→20:44)
[2019-03-13] MEDS: SENNA 8.6 MG TAB PO SCH ×2 (20:41→20:44)
[2019-03-13] MEDS: HEPARIN SODIUM/DEXTROSE 25,000 UNITS/500 ML BAG IV SCH (20:46)
--- NOTE | 2019-03-13 21:16 | Pharmacy Report ---
Pharmacy Abx Dose Short Note - Date of Service March 13, 2019 - Assessment & Plan Assessment 69 year old M receiving Vancomycin 1250mg Q18H for treatment of osteomyelitis of the right great toe 4 Day # 4 of antimicrobial therapy. Laboratory Tests 03/13/19 19:36 Vancomycin Trough 14.1 Plan Vancomycin * Trough level of 14.1 mcg/mL is subtherapeutic. * Change to 1250 mg IV every 16 hours * Goal trough level : ~20 mcg/mL Pharmacy will continue to follow and will adjust dose/frequency as necessary. Thank you.
--- NOTE | 2019-03-13 23:15 | Infectious Disease Progress Nt ---
Date of Service March 13, 2019 Assessment & Plan (1) Osteomyelitis of great toe of right foot: 69-year-old male with diabetes mellitus and peripheral neuropathy now with infected diabetic right great toe ulcer with underlying osteomyelitis. Now status post amputation. Likely will not require prolonged IV antibiotics given the toe has been removed. Await final culture results. Will adjust antibiotics once available. Will follow. (2) Infection due to Streptococcus group B: Subjective Patient seen for follow-up of osteomyelitis of the toe. Now status post amputation. Pain controlled. Remains afebrile. Wound culture growing beta-h emolytic strep and gram-negative bacilli. Review of Systems Review of Systems: All systems reviewed & are unremarkable except as noted in HPI & below Physical Exam Constitutional: WD/WN, vitals as above comfortable; no acute distress Eyes: PERRL, conjunctivae normal, anicteric sclerae ENMT: external ear and nose normal, oropharynx normal Neck: trachea midline, no thyromegaly neck nontender Respiratory: normal respiratory effort, lungs clear to auscultation normal percussion; no respiratory distress Cardiovascular: Rate/Rhythm: regular rate and regular rhythm Heart Sounds: normal S1 and normal S2; no gallop, no murmur and no cardiac rub Gastrointestinal (Abdomen): normal bowel sounds, soft, nontender, no hepatosplenomegaly Musculoskeletal: no cyanosis or clubbing, extremities motor strength 5/5 No spinal tenderness, no joint swelling or erythema Skin: no rashes, warm and dry Surgical dressing intact. Neurologic: moves all extremities and awake; no focal motor deficits Motor/Sensory: no sensory deficit Psychiatric: A+Ox3, euthymic affect Lymphatic: no cervical or axillary lymphadenopathy no inguinal lymphadenopathy Results & Data Vital Signs (Past 12 Hours) Vital Signs Temp Pulse Pulse Pulse Resp BP BP 03/13/19 15:02 36.5 C 83 16 92/42 L 03/13/19 14:10 36.5 C 90 16 101/63 03/13/19 13:15 36.6 C 84 15 105/63 03/13/19 12:22 36.3 C L 78 16 122/70 03/13/19 11:45 36.3 C L 78 18 129/75 03/13/19 11:15 36.4 C L 84 18 135/80 Pulse Ox 03/13/19 15:02 94 03/13/19 14:10 93 03/13/19 13:15 95 03/13/19 12:22 93 03/13/19 11:45 89 L 03/13/19 11:15 94 Laboratory Results Short CBC 03/13/19 Range/Units 07:46 WBC 5.37 (4.8-10.8) K/uL Hgb 10.8 L (14.0-18.0) g/dL Hct 33.2 L (42-52) % Plt Count 255 (130-400) K/uL BMP 03/13/19 07:46 Sodium 141 Potassium 4.1 Chloride 108 H Carbon Dioxide 27 BUN 14 Creatinine 1.42 H Glucose 106 H Calcium 8.6 Liver Function 03/13/19 Range/Units 07:46 Total Bilirubin 0.4 (0.2-1) mg/dl AST 10 L (15-37) U/L ALT 12 (12-78) U/L Alkaline Phosphatase 56 (45-117) U/L Albumin 2.8 L (3.4-5.0) gm/dl Diagnostic Findings Microbiology 03/11/19 17:25 Blood Aerobic Blood Culture - Preliminary No growth in Aerobic bottle after 48 hours. 03/11/19 17:25 Blood Anaerobic Blood Culture - Preliminary No growth in Anaerobic bottle after 48 hours. 03/11/19 17:30 Blood Aerobic Blood Culture - Preliminary No growth in Aerobic bottle after 48 hours. 03/11/19 17:30 Blood Anaerobic Blood Culture - Preliminary No growth in Anaerobic bottle after 48 hours. 03/11/19 17:00 Toe,Right Great Gram Stain - Final 03/11/19 17:00 Toe,Right Great Wound Culture - Preliminary Group G Beta Strep Group B Beta Strep Gram negative bacilli
[2019-03-14] MEDS: PIPERACILLIN/TAZOBACTAM 3.375 GM in DEXTROSE 5% 100 ML IV SCH ×2 (01:57→09:47)
[2019-03-14 02:50] LABS: Basophils # (auto) 0.03 K/uL (0-0.2); Basophils % (auto) 0.5 %; Eosinophils # (auto) 0.35 K/uL (0-0.5); Hematocrit (blood only) 29.3 % (42-52); Hemoglobin 9.7 g/dL (14.0-18.0); Immature Granulocytes # (auto) 0.01 K/uL (0.00-0.02); Immature Granulocytes % (auto) 0.2 %; Lymphocytes # (auto) 1.71 K/uL (1.2-3.4); Lymphocytes % (auto) 29.2 %; Mean Corpuscular Hgb Conc 33.1 g/dL (32-36); Mean Corpuscular Volume 84.9 fL (80-100); Mean Platelet Volume 8.5 fL (7.4-10.4); Monocytes % (auto) 8.5 %; Neutrophils # (auto) 3.25 K/uL (1.4-6.5); Neutrophils % (auto) 55.6 %; Platelet Count 254 K/uL (130-400); RDW Coefficient of Variation 12.5 % (11.5-14.5); Red Blood Count 3.45 M/uL (4.7-6.1); White Blood Count 5.85 K/uL (4.8-10.8)
[2019-03-14 03:09] LABS: Partial Thromboplastin Time 28.2 Seconds (21.0-31.0); Prothrombin Time 10.6 Seconds (9.0-12.0)
[2019-03-14 03:17] LABS: Albumin Level 2.4 gm/dl (3.4-5.0); BUN Creatinine Ratio 11.7 (10-20); Calcium 7.8 mg/dl (8.5-10.1); Est GFR (African American) 55.5; Est GFR (Non-African American) 47.9; Magnesium 2.1 mg/dl (1.8-2.4)
[2019-03-14] MEDS ORDERED: HEPARIN IV BOLUS 4,500 UNITS in SYRINGE 0 ML IV ONE ×2 (03:17→10:03)
[2019-03-14 03:20] LABS: Albumin Globulin Ratio 0.6 (0.9-2); Bilirubin,Total 0.2 mg/dl (0.2-1); Globulin 4.1 gm/dl (2.5-4.0); Total Protein 6.5 gm/dl (6.4-8.2)
--- NOTE | 2019-03-14 08:34 | Orthopedic Progress Note ---
Date of Service March 14, 2019 Assessment & Plan (1) Osteomyelitis of great toe of right foot: POD #1 s/p right great toe amputation. He was seen and examined by Dr. Falcon today. He should receive 24 hours of IV antibiotics post op. From orthopedic standpoint he can be discharged home at that point and will likely need at least 2 weeks of po antibiotics. He should follow up with Dr. Wasserman as an outpatient in about 2 weeks. He will likely need to keep his stitches in for about 3 weeks. Leave his dressings on, keep clean and dry until follow up. If it does need changed he was instructed to come into the office sooner. Subjective POD #1 from right great toe amputation. No new complaints today. He is hoping to get home today as he would like to watch a local parade. Physical Exam Physical Exam: He's alert and oriented. NAD. Right foot: dressing intact. Small amount of dried blood on dressing. Results & Data Vital Signs (Past 12 Hours) Vital Signs Temp Pulse Resp BP Pulse Ox 03/14/19 07:45 36.6 C 91 H 16 146/78 H 95 03/14/19 03:10 36.8 C 82 16 102/65 96 03/13/19 22:57 36.8 C 83 16 102/61 94
[2019-03-14] MEDS ORDERED: MULTIVITAMIN TAB PO SCH (09:00)
[2019-03-14] MEDS: ASPIRIN 81 MG ECTAB PO SCH (09:39)
[2019-03-14] MEDS: FERROUS GLUCONATE 324 MG TAB PO SCH (09:39)
[2019-03-14] MEDS: DOCUSATE SODIUM 100 MG CAP PO SCH (09:40)
[2019-03-14] MEDS: INSULIN ASPART 100 UNITS/ML 3 ML PEN SC SCH ×2 (09:43→12:54)
[2019-03-14 09:59] LABS: Partial Thromboplastin Ratio 1.3; Partial Thromboplastin Time 34.9 Seconds (21.0-31.0)
[2019-03-14] MEDS: HEPARIN SODIUM/DEXTROSE 25,000 UNITS/500 ML BAG IV SCH (10:13)
[2019-03-14] MEDS ORDERED: RIVAROXABAN 15 MG TAB PO SCH (10:30)
[2019-03-14] MEDS ORDERED: VANCOMYCIN HCL 1,250 MG in SODIUM CHLORIDE 0.9% 250 ML IV SCH (12:00)
--- NOTE | 2019-03-14 15:51 | Discharge Summary ---
Date of Service March 14, 2019 Admission HPI Per Admitting Provider The patient is a 69-year-old male with a past medical history including diabetes mellitus, and previous cellulitis/osteomyelitis of his left great toe requiring a PICC line and several weeks of IV antibiotics. He presented to his PCPs office today, was noted to have a significant right great toe infection, and was referred to the ED for further assessment. 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 X-ray in the emergency department showed destructive changes involving the tuft of the distal phalanx of the right great toe, that was consistent with osteomyelitis. He also underwent a lower extremity venous Doppler which showed near complete DVT within the right popliteal vein. He was then referred for evaluation for admission. Principal Diagnosis Osteomyelitis of right great toe Discharge Exam Constitutional WD/WN, vitals as above Eyes PERRL, conjunctivae normal, anicteric sclerae ENMT external ear and nose normal, oropharynx normal Neck trachea midline, no thyromegaly Respiratory normal respiratory effort, lungs clear to auscultation Cardiovascular RRR, no murmur, no edema Gastrointestinal (Abdomen) normal bowel sounds, soft, nontender, no hepatosplenomegaly Musculoskeletal no cyanosis or clubbing, extremities motor strength 5/5 (s/p amputation of right great toe) Skin no rashes, warm and dry Neurologic PERRL, EOMI, accommodation nl, no face palsy, no dysarthria deep tendon reflexes 2+ bilaterally; + abnormal touch/pain/proprioception (decreased sensation to all three in lower extremities) Psychiatric A+Ox3, euthymic affect Lymphatic no cervical or axillary lymphadenopathy Discharge Data Allergies Allergy/AdvReac Type Severity Reaction Status Date / Time ranitidine Allergy Unknown Verified 03/11/19 18:45 Consultations 03/11/19 18:45 ED Decision to Admit Stat 03/11/19 21:10 Consult Case Management - Discharge Planning Routine Consult Infectious Diseases Routine 03/12/19 10:30 Consult Orthopedic Surgery Routine 03/13/19 11:38 Consult Case Management - Discharge Planning Routine Procedures Performed Operation Date: 03/13/19 08:50 Actual Procedures p Right Great Toe Amputation(Right) - Hugh Wasserman MD Ordered Studies 03/11/19 16:53 US venous doppler LE RT Stat Hospital Course (1) Osteomyelitis of great toe of right foot: Diabetic foot ulcer right great toe/osteomyelitis- Vancomycin IV and Zosyn IV, wound cultures growing gram negative bacilli and beta strep, two types Consult infectious disease, Dr. Hernandez following based on sensitivities, will d/c home on Augmentin and Cipro for 14 day course s/p right great toe amputation on 03/13 tolerated well discharge instructions per Dr. Wasserman will follow up in office in two weeks, keep stitches for 3 weeks patient knows to use surgical shoe to ambulate, no weight on the toe/wound itself he knows to call the office sooner if the wound has bleeding and/or drainage (2) Deep vein thrombosis (DVT) of popliteal vein of right lower extremity: Patient was started on therapeutic Lovenox in the ED. changed to heparin IV, standard with no bolus, started on morning 03/12 Ordered hypercoagulable panel, pending He denies any symptoms of chest pain or shortness of breath. heparin drip stopped for surgery resumed low dose no bolus evening of 03/13 at 2100 will d/c home on Xarelto 15mg BID x 21 days then 20mg daily follow up with Dr. Houston note that hypercoagulable panel still pending (3) Diabetic ulcer of right great toe: As above continue antibiotics, s/p amputation Cipro and Augmentin on discharge (4) Type 2 diabetes mellitus: Held metformin. resume on discharge Placed on Accu-Cheks with NovoLog coverage. Check a hemoglobin A1c, it is 7.3%, was actually 6.7% a few months ago according to patient monitor for hypoglycemia, no episodes (5) Anemia: Chronically anemic, with range 9.9-13.0. 10.8 last check (6) CAD (coronary artery disease): Aspirin 81 mg p.o. daily. no chest pain or pressure today after surgery (7) Myocardial infarction: No acute issues at this time. (8) Chronic kidney disease, stage III (moderate): Cr at baseline, continue to monitor Total Time Total Time Spent Total Time Spent (In Minutes): 40 minutes Total Time Includes: Examination of the Patient, Discharge Planning, Medication Reconciliation, Communication With Other Providers (Dr. Hernandez, Dr. Falcon) and Other (talked with at the bedside) Discharge Plan Discharge Items Patient Disposition: Home - Self-Care Reason For Visit: DIABETIC FOOT ULCER Discharge Diagnosis: Diabetic foot ulcer and osteomyelitis, right great toe s/p amputation of right great toe Right leg DVT Condition: Good Discharge Goals: Decrease discomfort, Improve disease control and Improve function Activity: Per 'Additional Instructions' section Lifting: None Bathing: Keep incision dry Sexual Activity: When tolerated Exercise/Sports: Gradually increase as tolerated Driving/Machine Use: No limitations Weightbearing Comment: per Dr. Wasserman Non-emergency contact: Primary Care Provider and Surgeon Call non-emergency contact if: you have any medication questions, your symptoms worsen, your pain is not controlled, your pain is worsening and you have a fever Follow-up/Referrals: Candelario Houston MD [Primary Care Provider] - 03/26/19 2:00 pm (Please, follow up at Dr. Houston's office with his associate, Aviva SOLOMON, on MondayMarch 26 at 2:00 pm. *If you need to change this appointment, call the office at [phone].) Hugh Wasserman MD [Surgeon] - 03/25/19 1:50 pm (Please, follow up at Dr. Wasserman and Dr. Falcon's office on MondayMarch 25 at 1:50 pm. *The office is located at [address] [facility] in [place]. If you need to change this appointment, call the office at [phone].) Diet: Carb Consistent or DM2 Addtl Provider Instructions: Medications: - AMOXICILLIN/CLAVULONATE: take twice a day for 14 days, next dose due this evening - CIPROFLOXACIN: take twice a day for 14 days, next dose due this evening - XARELTO: 15mg twice a day for 21 days, next dose due this evening after you complete 21 days, then start 20mg in the evening daily take this dose until instructed to stop by PCP, Dr. Houston Right toe ulcer and osteomyelitis s/p amputation per Dr. Falcon, okay for discharge, keep bandages on until seen by Dr. Wasserman on 03/25 if you have bleeding or the wound is saturated prior to 03/[address] Wasserman's office sooner ambulate with the surgical shoe for infection, culture grew Streptococcal species and gram negative bacilli Dr. Hernandez recommends 14 days of Augmentin and Cipro, prescriptions sent Right leg DVT unprovoked, already improving, swelling decreased and less pain treated with Heparin drip initially, transition to Xarelto take Xarelto 15mg BID x 21 days and then 20mg daily follow up with Dr. Houston, do not stop taking Xarelto until instructed by Dr. Houston Prescriptions: New Xarelto 15 mg Tablet 15 mg PO BID 21 Days Qty: 42 RF: 0 amoxicillin-pot clavulanate 875-125 mg tablet 1 tab PO BID 14 Days Qty: 28 RF: 0 ciprofloxacin HCl 250 mg tablet 250 mg PO BID 14 Days Qty: 28 RF: 0 Xarelto 20 mg tablet 20 mg PO PM Qty: 30 RF: 2 Continued aspirin [Adult Aspirin Regimen] 81 mg tablet,delayed release (DR/EC) 81 mg PO DAILY RF: 0 metformin 500 mg tablet extended release 24 hr 1,000 mg PO AMPM Qty: 120 RF: 0 Discontinued cephalexin 250 mg capsule 250 mg PO QID RF: 0 Stand-Alone Forms: [employer] [facility]Other Patient Handouts: Rivaroxaban Oral tablet Rivaroxaban Oral tablet, DVT Prevent Discharge Orders: Discharge Order (Routine); Ordered 03/14/19 Ordered By: Leon Umanzor Admission Data Admit Date/Time: 03/11/19 19:55 Attending Provider: Leon Umanzor Admit Provider: Popeye Paulino Primary Care Provider: Candelario Houston Other Providers: Tyler Colbert ; Isael Hernandez ; Hugh Wasserman Service: Surgical Services Other Interventions: Discharge Summary Assessment (RN) Last Done: 03/14/19 12:37 DC Date/Time DO NOT enter until pt leaves facility: 03/14/19 14:33
== END 2019-03-14 14:33 | disposition home or self-care (01) | DRG 504 ==
LOC: ED 16:25 → 3N 19:55 → SUATTDRO 19:55 → 3N 20:48